=== PATIENT | male | born 1970 ===

== ENCOUNTER 2024-12-18 09:30 | Emergency (ER) | payer OTHER, SELFPAY ==
[2024-12-18 09:34] VITALS: BP 118/77; PULSE 86; RESP 18; TEMP 36.9; O2SAT 95; BMI 27.9
--- NOTE | 2024-12-18 09:47 | CRLHL7_ITS ---
For Patients: As a result of the Cures Act, medical imaging exams and procedure reports are released immediately into your electronic medical record. You may view this report before your referring provider. If you have questions, please contact your health care provider. INDICATION: Syncope COMPARISON: None TECHNIQUE: Single-view study obtained portably FINDINGS: TUBES AND LINES: None. HEART AND MEDIASTINUM: The heart size is normal. The mediastinal contour appears normal for patient age. LUNGS AND PLEURAL SPACES: Calcified granulomas noted. Lungs otherwise unremarkable.The pleural spaces are unremarkable. OSSEOUS STRUCTURES: Age-appropriate appearance. No acute focal finding.Mild elevation left hemidiaphragm IMPRESSION: No evidence of active pulmonary disease. Findings of remote granulomatous infection. Mild elevation of left hemidiaphragm. Dictated by Kobe Warner MD @ 12/18/2024 10:31:06 AM (Electronically Signed)
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
[2024-12-18 10:06] LABS: Basophils Absolute Auto 0.03 K/uL (0.00-0.30); Basophils Percent Auto 0.4 % (0.0-3.0); Eosinophils Absolute Auto 0.51 K/uL (0.00-0.50); Eosinophils Percent Auto 6.3 % (0.0-7.0); Hemoglobin* 15.7 gm/dL (13.5-17.5); Immature Granulocytes Abs Auto 0.01 K/uL (0.00-0.30); Immature Granulocytes Pct Auto 0.1 %; Lymphocytes Absolute Auto 2.82 K/uL (0.90-2.90); Lymphocytes Percent Auto 34.7 % (20-44); Mean Corpuscular HGB Conc 33 gm/dL (32-36); Mean Corpuscular Hemoglobin 30 pg (26-34); Mean Corpuscular Volume 92 fL (80-100); Monocytes Percent Auto 7.6 % (0.0-11.0); Neutrophils Absolute Auto 4.14 K/uL (1.7-7.0); Neutrophils Percent Auto 50.9 % (42.0-72.0); Platelet Count* 292 K/uL (140-440); RDW Coefficient of Variation % 12.6 % (11.5-15.5); Red Blood Count 5.21 m/uL (4.30-5.90); White Blood Count* 8.13 K/uL (4.50-11.00)
[2024-12-18 10:14] LABS: Slide Review Reflex No
[2024-12-18 10:20] LABS: Chloride* 104 mmol/L (96-114); Potassium* 4.1 mmol/L (3.6-5.1); Sodium* 142 mmol/L (135-149)
[2024-12-18 10:23] LABS: Anion Gap 9 mEq/L (7-15); Blood Urea Nitrogen* 19 mg/dL (7-30); Calcium* 9.6 mg/dL (8.4-10.6); Carbon Dioxide* 29 mmol/L (20-32); Creatinine* 1.2 mg/dL (0.5-1.5); Est. Creatinine Clearance* 82.77; Estimated Glomerular Filt Rate 72 ml/min; Glucose* 90 mg/dL (60-115)
[2024-12-18 10:36] LABS: D Dimer Quantitative* 0.23 ug/ml (0.00-0.50); Troponin I* < 0.01 ng/mL (0.01-0.04)
--- OUTSIDE RECORDS SUMMARY | 2024-12-18 10:41 | XMS_ITS | Clinical Summary ---
Author Organization [facility] Address [address] [place] [address] Care Team Providers Care Pre Owned Sales Manager Name Role Phone Uli Cooper MD Primary Care Provider [phone] Allergies Active Allergy Reactions Criticality Noted Date Comments Cats (Fur, Dander, Saliva) Shortness Of Breath,Itching 09/12/2023 Medications mometasone-formot bartolome (Dulera) 100-5 mcg/actuation inhalerIndication s:Mild persistent asthma without complication (HC) Inhale 2 Puffs by mouth two times daily. 2 Each 3 4 Active predniSONE (DELTASONE) 20 mg tabletIndications :Asthma, unspecified asthma severity, unspecified whether complicated, unspecified whether persistent (HC) Take 2 tablets (40mg) daily for 5 days, then 1 tablet (20mg) daily for 5 days 15 Tablet 4 Active Active Problems Problem Noted Date Diagnosed Date Atypical nevi 12/03/2023 Overview (02/13/2024): 11/28/2023, RIGHT ANTERIOR SHOULDER, Lentiginous compound nevus with severe atypia: s/p excision 02/03/24 Dr. Morales Family history of heart disease 04/11/2023 Hyperlipidemia 04/11/2023 Personal history of other infectious and parasit ic diseases 09/12/2021 Mild persistent asthma without complication 08/30 Overview (01/06/2024): Borderline methacholine 10/10/2023 Assessment & Plan (01/06/2024 12:43 PM CDT): Dulera as SMART therapy Welcome to return annually for refills, otherwise could follow-up with PCP Immunizations Immunization Administration Dates Next Due Hepatitis B (Adult) 03/19/2007 Pneumococcal Conj 20-valent (Prevnar 20) 024 Td (Age >=7 Years) 03/01/2009 Td, Preservative Free (age >= 7 Years) 9,09/30/2003 Tdap 06/02/2021,09/19/2006 Zoster (Shingrix-RZV, recombinant) 01/09/2024, Social History Tobacco Use Types Packs/Day Years Used Date Smoking Tobacco: Never Smokeless Tobacco: Never Tobacco Cessation:Counseling Given: Yes Alcohol Use Standard Drinks/Week Comments Yes 0 (1 standard drink = 0.6 oz pur e alcohol) 4 drinks PHQ-2 Answer Date Recorded PHQ-2 TOTAL SCORE 0 10/14/2023 Social Connections Answer Date Recorded Frequency of Communication with Friends and Fami ly 0 07/09/2023 Financial Resource Strain Answer Date R ecorded Difficulty of Paying Living Expenses 3 07/09/2023 Difficulty of Paying Living Expenses Not on file 07/09/2023 Food Insecurity Answer Date Recorded Worried About Running Out of Food in the Last Ye ar 1 07/09/2023 Transportation Needs Answer Date Record ed Lack of Transportation (Medical) 1 07/09/2023 Housing Stability Answer Date Recorded Unable to Pay for Housing in the Last Year 1 07/09/2023 Sex and Gender Information Value Date Recorded Sex Assigned at Not on file Legal Sex Male 8:19 AM TRANSMISSION TESTER Gender Identity Not on file Sexual Orientation Not on file Obstetrics History Last Filed Vital Signs Vital Sign Reading Time Taken Comments Blood Pressure 110/80 03/12/2024 9:03 AM CDT Pulse 101 03/12/2024 9:03 AM CDT Temperature 36.7 C (98.1 F) 11/29/2023 9:50 AM TRANSMISSION TESTER Respiratory Rate 18 11/29/2023 9:50 AM TRANSMISSION TESTER Oxygen Saturation 93% 03/12/2024 9:03 AM CDT Inhaled Oxygen Concentration - - Weight 98.4 kg (217 lb) 01/06/2024 11:47 AM CDT Height 185.4 cm (6' 1) 03/12/2024 9:03 AM CDT Body Mass Index 28.63 01/06/2024 11:47 AM CDT Plan of Treatment Health Maintenance Due Date Last Done Comments COVID-19 vaccine series ( season) 2024 02/13/2021, 01/23/2021 Influenza Vaccine (#1) 2024 Depression screening for age 12+ 10/14/2024 10/14/2023 BMI (ht and wt on same day) for age 18+ 01/05/2025 01/06/2024, 10/14/2023, 09/17/2023, Additional history exists Lipids for age 45-75 10/14/2028 10/14/2023 Tetanus booster 06/02/2031 06/02/2021, 06/10/2008, 03/01/2009, Additional history exists Colonoscopy through age 75 12/22/2033 12/23/2023 HIV for age 15-65 Addressed 05/04/2008 (Ve rified in Care Everywhere or Patient Record) Overridden with the intention of not completing the topic Hepatitis C screening for age 18-79 Addressed 05/04/2008 (Verified in Care Everywhere or Patient Record) Overridden with the intention of not completing the topic Tdap Completed 06/02/2021, 09/19/2006 Pneumococcal series for age 50+ Completed 10/14/2023 Zoster (shingles) series for age 50+ Completed 01/09/2024, 10/14/2023 Medical Devices Implanted Type Area Coffee Weigher Device Identifier Shelf Expiration Date Model / Serial / Lot Prestige Lp Cervicaldisc Implanted:Qty: 1 on 07/09/2023 by Magnus Holguin MD at [facility] N/A: Cervical Vertebrae Med[employer]onic 05/18/2030 [id number] / / [id number] Procedures Procedure Name Priority Date/Time Associated Diagnosis Comments SCAN-COLONOSCOPY 12/23/2023 10:3 0 AM CDT LIPID PANEL W REFLEX MEASURED LDL Routine 10/14/2023 12:36 PM TRANSMISSION TESTER Routine medical exam Screening for lipid disorders from Last 3 Months or Most Recently Relevant to Health Maintenance Results * SCAN-COLONOSCOPY (12/23/2023 10:30 AM CDT) Narrative Procedure Note Sammy Romo MD - 12/23/2023 9:34 AM CDT [facility] [address], [address], [place] [address] Patient Name: Nikhil Alcazar Gender: Male Exam Date: 12/23/2023 Visit Number: [id number] Age: 53 Years Date of : 1970 Attending MD: Sammy Romo MD Medical Record#: [id number] Procedure: Colonoscopy Indications: Colorectal cancer screening Referring MD: Referral Self Primary MD: Uli Cooper MD Medications: Admitting Medications: 0.9% Normal Saline at [facility] Intra Procedure Medications: Patient received monitored anesthesia care. Complications: No immediate complications Procedure: An examination of the heart and lungs was performed and found to be withinacceptable limits. . The patient was therefore deemed a reasonablecandidate for endoscopy and sedation. The risks and benefits of the procedure were explained to the patient.After obtaining informed consent, the patient received monitoredanesthesia care and I passed the scope without difficulty via the rectum to the cecum. The appendiceal orificeand ic valve were identified. The scope was retroflexed during theexamination The quality of the prep was good (Miralax/Gatorade/2 tabletsBisacodyl/Magnesium Citrate). This was a complete examination throughout the entire colon. Findings: Polyp location: descending colon. Quantity: 2. Size: 3-4 mm. Polypshape: sessile. Maneuver: polypectomy was performed with a cold snare. Removal: complete. Retrieval: complete. Bleeding: none. Diverticulosis. Location: - sigmoid. Description: mild. Size:small. Quantity: few. Impression: Colorectal polyps Diverticulosis of colon, acquired Preliminary Plan: The patient and their physician will receive a copy of the pathologyreport as well as pathology-based recommendations for future screening orsurveillance. Pathology Results: A: COLON, DESCENDING, POLYPS: 1. Inflammatory polyp (1) and normal colonic mucosa with alymphoid aggregate (clinically, 2 polyps) 2. Negative for dysplasia MICROSCOPIC A: Performed. Deeper tissue levels were examined. SPECIAL STAINING/DEEPER A: Deeper Electronically signed by: Gretchen Euceda DO Interpreted at [facility], [address] [place] [address] Orders Instruction(s)/Education: Instruction/Education Timeframe Assessment Colon Cancer Prevention K63.5 Colon Polyps K63.5 Diverticulosis/Diverticulitis K63.5 Final Plan: Repeat colonoscopy in 10 years for screening. If you have signs orsymptoms of lower GI illness or a new diagnosis of colon cancer in animmediate family member, you should contact [facility] or your primary providerto discuss whether your next exam should be repeated sooner. We will attempt to contact you at appropriate intervals via U.S. mail. Wemay not be able to find you or contact you at that time, therefore youshould know that the responsibility for following our recommendation restswith you. If you don't hear from us at the time your procedure is due,please contact our office to schedule an appointment. If your contactinformation should change, please contact our office so that we can updateyour record. _Electronically signed by: Sammy Romo MD 12/23/2023 cc: Uli Cooper MD us Sammy Romo MD OTHER Final Result * (ABNORMAL) LIPID PANEL W REFLEX MEASURED LDL [[id number]] (10/14/2023 12:36 PM TRANSMISSION TESTER) CHOLESTEROL,TOTAL 248(H) 100 - 199 mg/dL 10/14/2023 7:18 PM TRANSMISSION TESTER [facility] Comment: Cholesterol, Total Reference Ranges Desirable <200 mg/dL Borderline 200-239 mg/dL High >=240 mg/dL TRIGLYCERIDES 302(H) <150 mg/dL 10/14/2023 7:18 PM TRANSMISSION TESTER [facility] HDL CHOLESTEROL 51 >40 mg/dL 7:18 PM TRANSMISSION TESTER [facility] NON-HDL CHOLESTEROL 197(H) <145 mg/dl 10/14/2023 7:18 PM TRANSMISSION TESTER [facility] CHOL/HDL RATIO 4.86(H) <4.50 10/14/2023 7:18 PM TRANSMISSION TESTER [facility] LDL CHOLESTEROL 137(H) <=130 mg/dL 10/14/2023 7:18 PM TRANSMISSION TESTER [facility] VLDL CHOLESTEROL 60(H) <=30 mg/dL 10/14/2023 7:18 PM TRANSMISSION TESTER [facility] PROVIDER ORDERED STATUS RANDOM 10/14/2023 7:18 PM TRANSMISSION TESTER [facility] Blood BLOOD SPECIMEN / Unknown Venipuncture / Unknown 10/14/2023 12:36 PM TRANSMISSION TESTER 10/14/2023 12:36 PM TRANSMISSION TESTER Uli Cooper MD CHEMISTRY Final Result Performing Organization Address City/State/[facility] Co de Phone Number [facility] [address] [place] [phone], from Last 3 Months or Most Recently Relevant to Health Maintenance [place] [address] Advance Directives * Full Code (Latest Code Status on File) Date Activated Date Inactivated Comments 07/09/2023 1:42 PM 07/10/2023 4:36 PM Question Answer Comments Code Status Discussion: Reviewed Preferences Care Teams Pre Owned Sales Manager Relationship Specialty Start Date End Date Uli Cooper MD [address] [facility] [address] [facility] [address] [place] [address] PCP - General Family Practice 10/14/23
--- OUTSIDE RECORDS SUMMARY | 2024-12-18 10:41 | XMS_ITS | Encounter Summary ---
Author Organization [facility] Address [address] [place] [address] Care Team Providers Care Salesforce Developer Name Role Phone Therese Durán P.A.-C., P.A., M.S. Primary Ca re Provider Encounter Details Date Type Department Care Team (Late st Contact Info) Description 10/03/2024 CPAP Download Remote Patient Monitoring [facility] [address] [place] [address] [facility], Provider, Social History Tobacco Use Types Packs/Day Years Used Date Smoking Tobacco: Never Smokeless Tobacco: Never Alcohol Use Standard Drinks/Week Comments Yes 0 (1 standard drink = 0.6 oz pur e alcohol) [facility] Utilities Answer Date Recorded In the past 12 months has th e electric, gas, oil, or water [employer] threatened to shut off services in your home? Patient declined 05/26/2024 Exercise Vital Sign Answer Date Recorde d On average, how many days pe r week do you engage in moderate to strenuous exercise (like a brisk walk)? Patient declined On average, how many minutes do you engage in exercise at this level? Patient declined 05/26/2024 Hunger Vital Sign Answer Date Recorded Within the past 12 months, y ou worried that your food would run out before you got the money to buy more. Patient declined Within the past 12 months, t he food you bought just didn't last and you didn't have money to get more. Patient declined PRAPARE - Transportation Answer Date Re corded In the past 12 months, has l ack of transportation kept you from medical appointments or from getting medications? Patient declined 05/26/2024 In the past 12 months, has l ack of transportation kept you from meetings, work, or from getting things needed for daily living? Patient declined 05/26/2024 Dental Answer Date Recorded Dental: Regular Dentist Unknown 04/01/20 24 Housing Stability Answer Date Recorded What is your living situation today? 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 [address] [place] [address] 03/05/2025 10:00 AM CDT Ancillary Procedure Department of Allergy in [place], [place] [address] [address] Al Cespedes M.D. [address] [place] [address] Discharge Disposition: Home or Self Care documented as of this encounter Visit Diagnoses Not on filedocumented in this encounter Care Teams Salesforce Developer Relationship Specialty Start Date End Date Therese Durán P.A.-C., P.A., M.S. [address] [place] [address] PCP - General Family Medicine 04/08/24 documented as of this encounter
--- OUTSIDE RECORDS SUMMARY | 2024-12-18 10:41 | XMS_ITS | Encounter Summary ---
Author Organization [facility] Address [address] [place] [address] Care Team Providers Care Restorative Aide Name Role Phone Therese Durán P.A.-C., P.A., M.S. Primary Ca re Provider Reason for Visit * Reason Comments Immunotherapy * Outpatient (Routine) - Authorized Specialty Diagnoses / Procedures Referred By Contac t Referred To Contact Diagnoses Rhinitis Procedures Immunotherapy: Sub-cutaneous (SQ) injection Al Cespedes M.D. [address] [place] [address] Phone: tel: fax: [facility] Referral ID Status Reason Start Date Expiration Date V isits Requested Visits Authorized [id number] Authorized 2024 2025 100 100 Encounter Details Date Type Department Care Team (Latest Contact Info) Description 10/02/2024 8:30 AM RAIL CAR WELDER Ancillary Procedure Department of Allergy in [place], [place] [address] [place] [phone] Al Cespedes M.D. [address] [place] [phone] Heather Barfield, RDawitNDawit [address] [place] [phone] Rhinitis Discharge Disposition: Home or Self Care Social History Tobacco Use Types Packs/Day Years Used Date Smoking Tobacco: Never Smokeless Tobacco: Never Alcohol Use Standard Drinks/Week Comments Yes 0 (1 standard drink = 0.6 oz pur e alcohol) [facility] Utilities Answer Date Recorded In the past 12 months has th e electric, gas, oil, or water company threatened to shut off services in your [...] Date Recorded Dental: Regular Dentist Unknown 04/01/20 Housing Stability Answer Date Recorded What is your living situation today? Patient dec lined 05/26/2024 Sex and Gender Information Value Date Recorded Sex Assigned at Not on file Legal Sex Male 8:19 AM RAIL CAR WELDER Gender Identity Not on file Sexual Orientation Not on file documented as of this encounter Patient Instructions * Patient Instructions* Heather Barfield, R.N. - 10/02/2024 8:30 AM RAIL CAR WELDER Allergy shots Patient Instructions for Follow up 10/02/24 Your next dose is due in 2 - 8 days If you fail to be seen within the above time frame adjustment will be needed for your dosing, whichcan result in additional appointments and associated cost. You are required to stay in the department for 30 minutes after allergy injections. During your visit, please notify the nurse immediately for any signs of anaphylaxis including: Itching or hives (away from injection site) Itching, scratching, tightness in throat Swelling of any part of body (away from injection site) Chest tightness Itchy/watery eyes Wheezing, coughing or shortness of breath Stuffy or runny nose Nausea, vomiting, stomach ache, diarrhea Metallic taste in mouth Lightheadedness General feeling like something is wrong or not feeling well If you have any questions about your care or follow up instructions, please discuss with your nursebefore you leave your appointment. After your appointment, for severe symptoms call 911 or seek treatment at the closest emergency room. For non-emergent symptoms contact your provider. CAR WELDER documented in this encounter Nursing Notes * Heather Barfield R.N. - 10/02/2024 8:22 AM CST Sae presented to the Allergy Department for immunotherapy injection(s) today. You are in the Building Phase. You are due back for your allergy shot between 10/04/24 and 10/10/24. If you are beyond thiswindow, you will fall into the late protocol and will need adjustments to your dosing and appointments.. CAR WELDER documented in this encounter Plan of Treatment Upcoming Encounters Date Type Department Care Team (Latest Contact Info) Description 01/08/2025 10:00 AM CDT Ancillary Procedure Department of Allergy in [place], [place] [address] [address] Al Cespedes M.D. [address] [place] [address] 03/05/2025 10:00 AM CDT Ancillary Procedure Department of Allergy in [place], [place] [address] [phone] Al Cespedes M.D. [address] [place] [address] Discharge Disposition: Home or Self Care documented as of this encounter Visit Diagnoses Diagnosis Rhinitis documented in this encounter Care Teams Restorative Aide Relationship Specialty Start Date End Date SigTherese hammonds P.A.-C., P.A., M.S. [address] [place], [place] [phone] PCP - General Family Medicine 04/08/24 documented as of this encounter
--- OUTSIDE RECORDS SUMMARY | 2024-12-18 10:41 | XMS_ITS | Encounter Summary ---
Author Organization [facility] Address [address] [place] [address] Care Team Providers Care Goodyear Welter Name Role Phone Therese Durán P.A.-C., P.A., M.S. Primary Ca re Provider Encounter Details Date Type Department Care Team (Late st Contact Info) Description 11/19/2024 Clinical Communication [facility] [address] [place] [phone] Melissa Redding, RDawitNDawit [address] [place] [phone] Social History Tobacco Use Types Packs/Day Years Used Date Smoking Tobacco: Never Smokeless Tobacco: Never Alcohol Use Standard Drinks/Week Comments Yes 0 (1 standard drink = 0.6 oz pur e alcohol) [facility] Utilities Answer Date Recorded In the past 12 months has [facility] [employer], gas, oil, or water [employer] threatened to shut off services in your [...] on file Legal Sex Male 8:19 AM EVP OPERATIONS Gender Identity Not on file Sexual Orientation Not on file documented as of this encounter Miscellaneous Notes * Telephone Encounter - Melissa Redding R.N. - 11/19/2024 12:50 PM EVP OPERATIONS Procedure: EGD Prep: N/A Was prep sent to the pharmacy? Has he received the prep? no no History of Chronic Constipation or Incomplete bowel prep? no BMI or last known BMI BMI <45 can schedule CF, LC, and AL BMI<50 for AU and RW, if BMI 50-55 need anesthesia approval BMI >55 refer to [facility] BMI: Estimated body mass index is 28.06 kg/m?? as calculated from the following: Height as of 06/16/24: 183.5 cm. Weight as of 06/16/24: 94.5 kg. Diabetic: No Educated per [facility] Patient Education: Diabetes Medication Instructions: Tests, Procedures, and Surgeries that require Fasting. Weight loss/GLP-1 medications: Phentermine (Adipex) - Semaglutide (Rybelsus) - Liraglutide (Victoza, Saxenda) - Lixisenatide (Adlyxin) - Exenatide (Byetta) - Exenatide ER (Bydureon) - Dulaglutide (Trulicity) - Tirzepatide (Mounjaro) - Semaglutide (Ozempic, Wegovy) - No Phentermine needs to be held for 7 days prior. Daily oral meds need to be held the evening prior, and the day of the procedure. Daily injections need to be held the day of the procedure. Weekly injections need to be held for 7 days prior. Anticoagulation: - Warfarin (Coumadin) - Apixaban (Eliquis) - Dabigatran etexilate (Pradaxa) - Rivaroxaban (Xarelto) - Enoxaparin (Lovenox) - Fondaparinux (Arixtra) - Clopidogrel (Plavix) - Ticagrelor (Brilinta) - Prasugrel (Effient) No As of 03/03/24: Aspirin 325mg does not need to be held prior to an endoscopy procedure. Reviewed booklet with patient including prep, procedural expectations, NPO instructions, medicationinstructions, arrival time and that they need a driver's license examiner. yes Arrival Time: Patient informed of the auto text or phone call with arrival time the evening prior: May still call to obtain arrival time: yes Education complete. Patient verbalizes understanding of education provided and number to call if questions arise: [facility] Endoscopy Call Center [phone] yes Additional Comments: If patient is concerned he is not emptying pre-procedural, please call the listed number, based on location, the morning of. [phone] [facility] [phone] [facility] [phone] [facility] [phone] [facility] [phone] [facility] OPERATIONS documented in this encounter Plan of Treatment Upcoming Encounters Date Type Department Care Team (Latest Contact Info) Description 01/08/2025 10:00 AM CDT Ancillary Procedure Department of Allergy in [place], [place] [address] [phone] Al Cespedes M.D. [address] [place] [address] 03/05/2025 10:00 AM CDT Ancillary Procedure Department of Allergy in [place], [place] [address] [phone] Al Cespedes M.D. [address] [place] [address] Discharge Disposition: Home or Self Care documented as of this encounter Visit Diagnoses Not on filedocumented in this encounter Care Teams Goodyear Welter Relationship Specialty Start Date End Date Therese Durán P.A.-C., P.A., M.S. [address] [place] [phone] PCP - General Family Medicine 04/08/24 documented as of this encounter
--- OUTSIDE RECORDS SUMMARY | 2024-12-18 10:41 | XMS_ITS | Encounter Summary ---
Author Organization [facility] Address [address] [place] [address] Care Team Providers Care Pumper Hand Name Role Phone Therese Durán P.A.-C., P.A., M.S. Primary Ca re Provider Reason for Visit * Reason Onset Date Comments Cough 12/15/2024 Encounter Details Date Type Department Care Team (Late st Contact Info) Description 12/15/2024 Nurse Triage Department of Family Medicine, [facility], in [place], [place] [address] [place] [address] Esmer Garcia, RDawitN. 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 - 12/15/2024 12:56 PM CDT Chief Complaint / Reason for Call Patient is a 54 y.o. male calling regarding Cough. Assessment Concern: Patient is calling in regarding chronic cough since August. Patient has seen allergy andpulmonologist. Patient has noticed improvement with his inhaler changes. Patient had a coughing fitwhere he thought maybe had a seizure. Patient was aware at the end when he was shaking and came outof it. Patient was unaware for around 5 seconds. Patient recalls some times that he felt lightheaded when he was having his coughing fits/spells. Patient feels well now, no ongoing symptoms. Patient feels fatigued today, but only current symptom. Present for: 0730 Home cares tried: monitor Calling to request: advice The recommended disposition is See a health care provider within 24 hours (overriding Go to ED Now (or PCP Triage)). Patient was warm transferred to Mercedes, Patient Appointment Director Of Market Analysis at the clinic for further assistance. [facility] provider, Dr. Chica Meza, contacted for provider advice. Provider recommended: if no other symptoms emerge be seen within 24 hours, if new symptoms develop call triage or be seen in nearest ED. . Patient notified of provider recommendations and agrees to the plan of care. Care Advice Patient/Caregiver understands and will follow care advice?: Yes, able to teach back [id number] Nurse Esmer Soriano Dec 15, 2024 01:10 PM Care Advice GO TO ED/UCC NOW (OR PCP TRIAGE): * IF NO PCP (PRIMARY CARE PROVIDER) SECOND-LEVEL TRIAGE: You need to be seen within the next hour. Go to the ED/UCC at Hospital. Leave as soon as you can. * IF PCP SECOND-LEVEL TRIAGE REQUIRED: You may need to be seen. Your doctor (or DRY DRUG WORKER/PA) will want totalk with you to decide what's best. I'll page the provider on-call now. If you haven't heard from the provider (or me) within 30 minutes, go directly to the ED/UCC at Hospital. SOURCES OF CARE: * TRIAGER CAUTION: In selecting the most appropriate care site, you must consider both the severityof the patient's symptoms AND what resources are available at that care site. * ED: Patients who may need surgery, need hospitalization, sound seriously ill or may be unstable need to be sent to an ED. Likewise, so do most patients with complex medical problems and serious symptoms. * UCC IS OPEN: Some Urgent Care Centers (UCCs) can manage patients who are stable and have less serious symptoms (e.g., minor illnesses and injuries). The triager must know the UCC capabilities before sending a patient there. If unsure, call ahead. * OFFICE IS OPEN: If patient sounds stable and not seriously ill, consult PCP (or follow your office policy) to see if patient can be seen NOW in office. ANOTHER ADULT SHOULD DRIVE: * It is better and safer if another adult drives instead of you. CALL BACK IF: * You become worse Reason for Disposition [1] Age > 50 years AND [2] now alert and feels fine Protocols used: [id number] documented in this encounter Plan of Treatment Upcoming Encounters Date Type Department Care Team (Latest Contact Info) Description 01/08/2025 10:00 AM CDT Ancillary Procedure Department of Allergy in [place], [place] [address] [place] [address] Al Cespedes M.D. [address] [place] [address] 03/05/2025 10:00 AM CDT Ancillary Procedure Department of Allergy in [place], [place] [address] [phone] Al Cespedes M.D. [address] [place] [address] Discharge Disposition: Home or Self Care documented as of this encounter Visit Diagnoses Not on filedocumented in this encounter Care Teams Pumper Hand Relationship Specialty Start Date End Date Therese Durán P.A.-C., P.A., M.S. [address] [place] [phone] PCP - General Family Medicine 04/08/24 documented as of this encounter
--- OUTSIDE RECORDS SUMMARY | 2024-12-18 10:41 | XMS_ITS | Clinical Summary ---
Author Organization [facility] Address [address] [place] [address] Care Team Providers Care Vp Name Role Phone Therese Durán P.A.-C., P.A., M.S. Primary Ca re Provider Source Comments Patient records contain information from all sites at [facility]. For routine questions regarding patient records, call [phone] during business hours, M-F 8:00 AM - 5:00 PM Central Time. Record requests for emergency care only can be directed to [phone] at any time.[facility] Allergies Active Allergy Reactions Criticality Noted Date Comments Cat Dander Cough,Shortness of breath,Wheezing 10/19/2005 Dog Dander Other (see comments) 11/02/2024 Cough, Shortness of breath, Wheezing Horse Dander Other (see comments) 11/02/2024 Cough, Shortness of breath, Wheezing House Dust Mite Other (see comments) 11/02/2024 Cough, Shortness of breath, Wheezing [place] Other (see comments) 11/02/2024 Cough, Shortness of breath, Wheezing Medications EPINEPHrine (EpiPen 2-Pedrito) 0.3 mg/0.3 mL injection syringe Inject into thigh and hold for 3 seconds. 1 each 2 4 Active DME CPAPIndications :Apnea Sleep Obstructive DME Order 1 each 4 Active albuterol 2.5 mg /3 mL nebulizer solution Inhale 3 mL (2.5 mg total) by nebulization every 6 (six) hours as needed for wheezing or shortness of breath. 225 mL 3 4 Active fluticasone-ume clidin-vilanter (Trelegy Ellipta) 200-62.5-25 mcg inhaler Inhale 1 puff daily. 1 each 5 5 Active albuterol (Ventolin HFA) 90 mcg/actuation inhaler Inhale 2 puffs every 4 (four) hours as needed for wheezing or shortness of breath. 18 g 5 5 Active loperamide (Imodium A-D) 2 mg capsuleIndicati ons:Diarrhea Initial: 4 mg, followed by 2 mg after each loose stool; maximum: 16 mg/day. Use for 3 days maximum 60 capsule 5 Active Hospital, Clinic, or Other Facility Administered Medication Ordered Dose Route Frequency Start Date End Date Status hydrocortisone 1 % cream 1 ApplicationIndications:Rhini tis Allergic,Desensitization To Allergies 1 Application top As needed 08/03/2024 Active Active Problems Patient Care Coordination No te Formatting of this note migh t be different from the original. PATIENT PREFERS NO VITALS DURING OFFICE VISITS. Please ask patient to confirm preferences and document in the chart Problem Noted Date Diagnosed Date Persons Encountering Health Services In Other Specified Circumstances 11/02/2024 Overview (11/02/2024): Patient prefers no vitals during office visits. Advised on required nursing protocol for vital check during medical visits. To improve patient experience and adhere to the [facility] protocols for nursing during room, would recommend nursing to ask patient to confirm preferences during and to proceed per response with required documentation in the chart. Asthma Mild Intermittent With Acute Exacerbation 10/06/2024 Gastroesophageal Reflux Disease Without Esophagi tis 10/06/2024 Chronic Cough 10/06/2024 Eosinophilic Asthma 10/05/2024 Rhinitis Allergic Dust Mite 10/05/2024 Rhinitis Allergic Dog 10/05/2024 Rhinitis Allergic Cat 10/05/2024 Rhinitis Allergic Due To Outdoor Pollen 10/05/19 25 Conjunctivitis Chronic Allergic 10/05/2024 Desensitization To Allergies 10/05/2024 Hyperlipidemia 05/26/2024 Encounters Date Type Department Care Team Description 12/16/2024 8:30 AM CDT Office Visit Department of Family Medicine, [facility], in [place], [place] [address] [place], [place] [address] Neil Roberts II, M.D. Eosinophilic Asthma (HCC) (Primary Dx); Chronic Cough; Desensitization To Allergies Discharge Disposition: Home or Self Care 12/15/2024 Nurse Triage Department of Family Medicine, [facility], in [place], [place] [address] [place] [address] Esmer Garcia R.N. Cough 12/11/2024 10:00 AM CDT Ancillary Procedure Department of Allergy in [place], [place] [address] [place] [phone] Al Cespedes M.D. Rhinitis Discharge Disposition: Home or Self Care 12/04/2024 CPAP Download Remote Patient Monitoring [facility] [address] [place] [address] [facility], MD Bea 11/20/2024 11:27 AM GERIATRIC NURSE ASSISTANT Anesthesia Event Department of Gastroenterology in [place], [place] [address] [place] [id number] Leidy Castro M.D., M.S. Fabian Perez, D.O. 11/20/2024 11:16 AM GERIATRIC NURSE ASSISTANT - 11/20/2024 11:59 PM GERIATRIC NURSE ASSISTANT Hospital Encounter Department of Gastroenterology in [place], [place] [address] [place] [phone] Farzaneh Jordan M.D., Ph.D. Leelee Gallegos M.D. Stump, Corey P, PALMER, STAFFING RN Celiac Disease Discharge Disposition: Home or Self Care 11/20/2024 11:00 AM GERIATRIC NURSE ASSISTANT Ancillary Procedure Department of Allergy in [place], [place] [address] [place] [phone] Al Cespedes M.D. Adams, Connie L, L.P.N. Rhinitis Discharge Disposition: Home or Self Care 11/19/2024 Clinical Communication [facility] PRE/POST [address] [facility] [place] [phone] Melissa Redding, R.N. 11/17/2024 Clinical Communication Department of Gastroenterology in [place], [place] [address] [place] [phone] Leelee Gallegos M.D. EGD 11/16/2024 2:10 PM GERIATRIC NURSE ASSISTANT Comprehensive Visit Division of Gastroenterology in [place], [place] [address] [place] [address] Jeff Mariano M.D., M.S. Farzaneh Jordan M.D., Ph.D. Diarrhea; Celiac Disease 11/05/2024 11:00 AM GERIATRIC NURSE ASSISTANT Ancillary Procedure Department of Allergy in [place], [place] [address] [place] [address] Al Cespedes M.D. Rhinitis Discharge Disposition: Home or Self Care 11/05/2024 Results Follow-Up Department of Family Medicine, [facility], in [place], [place] [address] [place] [address] Jeff Mariano M.D., M.S. Celiac Disease Serology [place], Inflammatory Bowel Disease Serology Panel, tTG (Tissue Transglutaminase), Antibody, IgA, Additional followed-up results: 2 11/05/2024 Clinical Communication Department of Allergy in [place], [place] [address] [place] [address] Jayy Pereyra M.D. 11/03/2024 CPAP Download Remote Patient Monitoring [facility] [address] [place] [address] [facility] 11/02/2024 8:45 AM GERIATRIC NURSE ASSISTANT - 11/02/2024 11:59 PM GERIATRIC NURSE ASSISTANT Hospital Encounter Department of Laboratory Medicine in [place], [place] [address] [place] [address] Jeff Mariano M.D., M.S. Discharge Disposition: Home or Self Care 10/30/2024 11:19 AM GERIATRIC NURSE ASSISTANT - 10/30/2024 11:59 PM GERIATRIC NURSE ASSISTANT Hospital Encounter Department of Laboratory Medicine in [place], [place] [address] [place] [address] Jeff Mariano M.D., M.S. Diarrhea Discharge Disposition: Home or Self Care 10/30/2024 11:19 AM GERIATRIC NURSE ASSISTANT - 10/30/2024 11:59 PM GERIATRIC NURSE ASSISTANT Hospital Encounter Department of Laboratory Medicine in [place], [place] [address] [place] [address] Jeff Mariano M.D., M.S. Diarrhea Discharge Disposition: Home or Self Care 10/30/2024 11:18 AM GERIATRIC NURSE ASSISTANT Hospital Encounter Department of Laboratory Medicine in [place], [place] [address] [place] [address] Jeff Mariano M.D., M.S. Diarrhea Discharge Disposition: Home or Self Care 10/30/2024 11:00 AM GERIATRIC NURSE ASSISTANT Ancillary Procedure Department of Allergy in [place], [place] [address] [place] [address] Al Cespedes M.D. Rhinitis Discharge Disposition: Home or Self Care 10/30/2024 Results Follow-Up Department of Family Medicine, [facility], in [place], [place] [address] [place] [address] Jeff Mariano M.D., M.S. GI Pathogen Panel, PCR, Feces 10/29/2024 3:31 PM GERIATRIC NURSE ASSISTANT - 10/29/2024 11:59 PM GERIATRIC NURSE ASSISTANT Hospital Encounter Department of Laboratory Medicine in [place], [place] [address] [place] [address] Jeff Mariano M.D., M.S. Diarrhea Discharge Disposition: Home or Self Care 10/29/2024 2:30 PM GERIATRIC NURSE ASSISTANT Office Visit Department of Family Medicine, [facility], in [place], [place] [address] [place] [address] Jeff Mariano M.D., M.S. Diarrhea (Primary Dx); Persons Encountering Health Services In Other Specified Circumstances Discharge Disposition: Home or Self Care 10/27/2024 Nurse Triage Department of Family Medicine, [facility], in [place], [place] [address] [place] [address] Zahida John R.N. Diarrhea 10/23/2024 10:00 AM GERIATRIC NURSE ASSISTANT Ancillary Procedure Department of Allergy in [place], [place] [address] [place] [address] Al Cespedes M.D. Adams, Connie L, L.P.NDawit Rhinitis Discharge Disposition: Home or Self Care 10/16/2024 3:00 PM GERIATRIC NURSE ASSISTANT Comprehensive Visit Department of Dermatology in [place], [place] [address] [place] [address] Inez Plaza M.D. Hutchinson, Sara K, APRN C.N.P., M.S.N. Screening Examination Skin Cancer (Primary Dx); Lesion Skin; Nevus Atypical; Nodule Subcutaneous; Keratosis Seborrheic; Nevi Multiple 10/16/2024 10:00 AM GERIATRIC NURSE ASSISTANT Ancillary Procedure Department of Allergy in [place], [place] [address] [place] [address] Al Cespedes M.D. Juenger, Carrie J, RRose Marie Rhinitis Discharge Disposition: Home or Self Care 10/09/2024 10:00 AM GERIATRIC NURSE ASSISTANT Ancillary Procedure Department of Allergy in [place], [place] [address] [place] [address] Al Cespedes M.D. Adams, Connie L, L.P.NDawit Rhinitis Discharge Disposition: Home or Self Care 10/06/2024 10:00 AM GERIATRIC NURSE ASSISTANT Comprehensive Visit Department of Pulmonary Medicine in [place], [place] [address] [place] [address] Ramandeep Kaplan M.D. Chronic Cough (Primary Dx); Asthma Mild Intermittent With Acute Exacerbation (HCC); Eosinophilic Asthma (HCC); Rhinitis Allergic Cat; Gastroesophageal Reflux Disease Without Esophagitis Discharge Disposition: Home or Self Care 10/05/2024 8:30 AM GERIATRIC NURSE ASSISTANT Comprehensive Visit Department of Allergy in [place], [place] [address] [place] [address] Jayy Pereyra M.D. Asthma Moderate Persistent With Acute Exacerbation (HCC) (Primary Dx); Bronchitis Acute; Eosinophilic Asthma (HCC); Desensitization To Allergies; Rhinitis Allergic Dust Mite; Rhinitis Allergic Dog; Rhinitis Allergic Cat; Rhinitis Allergic Due To Outdoor Pollen; Conjunctivitis Chronic Allergic Discharge Disposition: Home or Self Care 10/03/2024 CPAP Download Remote Patient Monitoring [facility] [address] [place] [address] [facility] 10/02/2024 8:30 AM GERIATRIC NURSE ASSISTANT Ancillary Procedure Department of Allergy in [place], [place] [address] [place] [place] [address] Al Cespedes M.D. Juenger, Carrie J, R.N. Rhinitis Discharge Disposition: Home or Self Care 09/29/2024 9:55 AM GERIATRIC NURSE ASSISTANT - 09/29/2024 11:59 PM GERIATRIC NURSE ASSISTANT Hospital Encounter Department of Radiology in [place], [place] [address] [place] [address] Taco Terrell P.A.-CDawit Asthma (HCC) Discharge Disposition: Home or Self Care 09/29/2024 9:26 AM GERIATRIC NURSE ASSISTANT - 09/29/2024 9:54 AM GERIATRIC NURSE ASSISTANT Hospital Encounter Department of Pulmonary Medicine in [place], [place] [address] [place] [address] Taco Terrell P.A.-CDawit Asthma (HCC) Discharge Disposition: Home or Self Care 09/29/2024 9:18 AM GERIATRIC NURSE ASSISTANT - 09/29/2024 9:25 AM GERIATRIC NURSE ASSISTANT Hospital Encounter Department of Pulmonary Medicine in [place], [place] [address] [place] [address] Taco Terrell P.A.-CDawit Asthma (HCC) Discharge Disposition: Home or Self Care 09/28/2024 1:00 PM GERIATRIC NURSE ASSISTANT Ancillary Procedure Department of Allergy in [place], [place] [address] [place] [address] Al Cespedes M.D. Rhinitis Discharge Disposition: Home or Self Care 09/22/2024 11:00 AM GERIATRIC NURSE ASSISTANT Ancillary Procedure Department of Allergy in [place], [place] [address] [place] [address] Al Cespedes M.D. Rhinitis Discharge Disposition: Home or Self Care 09/22/2024 7:30 AM GERIATRIC NURSE ASSISTANT Office Visit Department of Family Medicine, [facility], in [place], [place] [address] [place] [address] Taco Terrell P.A.-C. Asthma (HCC) (Primary Dx); Asthma Exacerbation (HCC) Discharge Disposition: Home or Self Care 09/22/2024 Clinical Communication Department of [facility], [facility], in [place], [place] [address] [place], [place] [address] Taco Terrell P.A.-C. 09/22/2024 Orders Only Department of [facility], [facility], in [place], [place] [address] [place] [address] Taco Terrell P.A.-C. Asthma (HCC) (Primary Dx) 09/22/2024 Clinical Communication Department of [facility], [facility], in [place], [place] [address] [place] [place] [address] Taco Terrell P.ADawit-C. 09/21/2024 Nurse Triage Department of [facility], [place], [place] [address] [place] [address] Vanessa Walker R.N. Cough from Last 3 Months Immunizations Immunization Administration Dates Next Due HepB Adult 03/19/2007 HepB Adult (HEPLISAV-B) 05/26/2024 PCV20 10/14/2023 RZV (SHINGRIX) 01/09/2024,10/14/2023 Td Preservative Free (TENIVAC, DECAVAC) 03/01/20,09/30/2003 Tdap 06/02/2021,09/19/2006 Family History Medical History Relation Name Comments cardiac stent Brother Hyperlipidemia Father Stroke Father Relation Name Status Comments Brother Father Social History Tobacco Use Types Packs/Day Years Used Date Smoking Tobacco: Never Smokeless Tobacco: Never Tobacco Cessation:Counseling Given: Not Answered Alcohol Use Standard Drinks/Week Comments Yes 0 (1 standard drink = 0.6 oz pur e alcohol) [facility] Utilities Answer Date Recorded In the past 12 months has e [employer] gas, oil, or water [employer] threatened to shut off services in your [...] on file Legal Sex Male 8:19 AM GERIATRIC NURSE ASSISTANT Gender Identity Not on file Sexual Orientation Not on file Last Filed Vital Signs Vital Sign Reading Time Taken Comments Blood Pressure 126/87 11/20/2024 11:30 AM GERIATRIC NURSE ASSISTANT Pulse 96 10/06/2024 10:07 AM GERIATRIC NURSE ASSISTANT Temperature 36 C (96.8 F) 11/20/2024 11:30 AM GERIATRIC NURSE ASSISTANT Respiratory Rate 18 11/20/2024 11:30 AM GERIATRIC NURSE ASSISTANT Oxygen Saturation 99% 11/20/2024 11:30 AM GERIATRIC NURSE ASSISTANT Inhaled Oxygen Concentration - - Weight 94.5 kg (208 lb 5.4 oz) 06/16/2024 10:20 AM CDT Height 183.5 cm (6' 0.24) 06/16/2024 10:20 AM C DT Body Mass Index 28.06 06/16/2024 10:20 AM CDT Plan of Treatment Upcoming Encounters Date Type Department Care Team (Latest Contact Info) Description 01/08/2025 10:00 AM CDT Ancillary Procedure Department of Allergy in [place], [place] [address] [place] [address] Al Cespedes M.D. [address] [place] [address] 03/05/2025 10:00 AM CDT Ancillary Procedure Department of Allergy in [place], [place] [address] [place] [phone] Al Cespedes M.D. [address] [place] [address] Discharge Disposition: Home or Self Care Health Maintenance Due Date Last Done Comments CT Colonography 1971 Cologuard 1971 FIT 1971 HIV Screening 1971 Hepatitis C Screening 1971 COVID-19 Vaccine ( - 2023- season) 2024 08/30/2021, 02/13/2021, 01/23/2021 Influenza Vaccine (#1) 2024 Hepatitis B Vaccines (3 of 3 - 19+ 3-dose series) 07/21/2024 05/26/2024, 03/19/2007 Depression Screening (Annual PHQ-2) 09/30/2024 Lipid (Cholesterol) Screening 10/14/2024 10/14/2023 Fasting Glucose for Diabetes Screening 07/14/2026 07/14/2023, 06/25/2023 DTaP,Tdap,and Td Vaccines (4 - Td or Tdap) 06/02/2031 06/02/2021, 03/01/2009, 09/19/2006, Additional history exists Colonoscopy 12/22/2033 12/23/2023 Colorectal Cancer Screening 12/22/2033 Pneumococcal vaccine (50+ years) Completed 10/14/2023 Zoster Vaccines Completed 01/09/2024, 10/14/2023 IPV Vaccines Aged Out No longer eligi ble based on patient's age to complete this topic Procedures Procedure Name Priority Date/Time Associated Diagnosis Comments GLIADIN (DEAMIDATED) AB, IGA, S Routine 11/02/2024 8:49 AM GERIATRIC NURSE ASSISTANT ENDOMYSIAL ABS (IGA), S Routine 11/02/2024 8:49 AM GERIATRIC NURSE ASSISTANT TISSUE TRANSGLUTAMINASE (TTG) AB, IGA, S Routine 11/02/2024 8:49 AM GERIATRIC NURSE ASSISTANT INFLAMMATORY BOWEL DISEASE SEROLOGY PANEL, S Routine 11/02/2024 8:49 AM GERIATRIC NURSE ASSISTANT Diarrhea CELIAC DISEASE SEROLOGY CASCADE, S Routine 11/02/2024 8:49 AM GERIATRIC NURSE ASSISTANT Diarrhea MALABSORPTION EVALUATION PANEL, F Routine 10/31/2024 6:00 AM GERIATRIC NURSE ASSISTANT Diarrhea OVA AND PARASITE, MICROSCOPY, F Routine 10/31/2024 6:00 AM GERIATRIC NURSE ASSISTANT Diarrhea ENTERIC PATHOGENS CULTURE, STOOL Routine 10/31/2024 6:00 AM GERIATRIC NURSE ASSISTANT Diarrhea GI PATHOGEN PANEL, PCR, F Routine 10/29/2024 4:18 PM GERIATRIC NURSE ASSISTANT Diarrhea EXHALED NITRIC OXIDE Routine 09/29/2024 10:05 AM GERIATRIC NURSE ASSISTANT Asthma (HCC) DX CHEST AP OR PA AND LATERAL 2 VIEWS RAD - Routine (most inpatients and all outpatients) 09/29/2024 10:02 AM GERIATRIC NURSE ASSISTANT Asthma (HCC) PULMONARY FUNCTION TESTS Routine 09/29/2024 9:57 AM GERIATRIC NURSE ASSISTANT Asthma (HCC) from Last 3 Months Results * Celiac Disease Serology [place] (11/02/2024 8:49 AM GERIATRIC NURSE ASSISTANT) Immunoglobulin A (IgA), S 289 61 - 356 mg/dL 11/03/2024 12:28 PM GERIATRIC NURSE ASSISTANT [facility] Celiac Disease Interpretation See Comment: Celiac disease possible. Consider biopsy. 11/06/2024 10:21 PM GERIATRIC NURSE ASSISTANT [facility] Blood (Blood, Venous) 11/02/2024 8:49 AM GERIATRIC NURSE ASSISTANT 11/02/2024 6:19 PM GERIATRIC NURSE ASSISTANT Narrative [facility] - 11/06/2024 10:21 PM GERIATRIC NURSE ASSISTANT Specimen Information: Specimen ID: [id number] Specimen Type: Blood Specimen Collection Start Date: 11/02/2024 8:49 AM Specimen Received Date: 11/02/2024 6:19 PM Specimen ID: [id number] Specimen Type: Blood Specimen Collection Start Date: 11/02/2024 8:49 AM Specimen Received Date: 11/03/2024 6:16 AM Jeff Mariano M.D., M.S. LAB BLOOD ADD-ON Final Result Performing Organization Address [facility] de Phone Number [facility] [address] [place] [address] [facility] [address] [place] [address] [place] [facility] [place] [address] * (ABNORMAL) Gliadin (Deamidated) Antibody, IgA (11/02/2024 8:49 AM GERIATRIC NURSE ASSISTANT) Gliadin(Deamid ated) Ab, IgA, S 48.3(H) <20.0 (Negative) U 11/05/2024 9:13 AM GERIATRIC NURSE ASSISTANT [facility] Comment:Interpretation: Posi tive (>30.0) Blood 11/02/2024 8:49 AM GERIATRIC NURSE ASSISTANT 11/03/2024 6:31 PM GERIATRIC NURSE ASSISTANT Jeff Mariano M.D., M.S. LAB BLOOD ADD-ON Final Result Performing Organization Address [facility] de Phone Number [facility] [address] [place] [address] [place] [address] * Endomysial Antibodies (IgA) (11/02/2024 8:49 AM GERIATRIC NURSE ASSISTANT) Endomysial Ab Negative Negative 11/06/2024 3:01 PM GERIATRIC NURSE ASSISTANT [facility] Comment: A negative serum IgA endomysial antibody is usually seen in normal individuals, however a diagnosis of celiac disease, dermatitis herpetiformis and other gluten sensitive disorders cannot be completely excluded, as this test may be negative in a subset of individuals with these disorders. If the clinical suspicion for one of these disorders is high, recommend further testing for gluten sensitivity as indicated by the Celiac Disease Comprehensive [place] ([place] Test [facility] Code CDCOM). In addition serum IgA endomysial antibody may also be negative in gluten-sensitive patients (with celiac disease, dermatitis herpetiformis or other gluten-sensitive disorders), who adhere to a strict gluten-free diet. ----ADDITIONAL INFORMATION---- This test has been modified from the sheep farmer's instructions. Its performance characteristics were determined by [facility] in a manner consistent with CLIA requirements. This test has not been cleared or approved by the U.S. Food and Drug Administration. Blood 11/02/2024 8:49 AM GERIATRIC NURSE ASSISTANT 11/05/2024 11:39 AM GERIATRIC NURSE ASSISTANT Jeff Mariano M.D., M.S. LAB BLOOD ADD-ON Final Result Performing Organization Address [facility]/ZIP Co de Phone Number [facility] [address] [place] [address], [facility] [address] [place] [address] [address] [place] [address] * (ABNORMAL) tTG (Tissue Transglutaminase), Antibody, IgA (11/02/2024 8:49 AM GERIATRIC NURSE ASSISTANT) Tissue Transglutaminase Ab, IgA, S 10.0(H) <4.0 (Negative ) U/mL 11/03/2024 6:30 PM GERIATRIC NURSE ASSISTANT [facility] Comment:Interpretation: Weak Positive (4.0-10.0) Blood 11/02/2024 8:49 AM GERIATRIC NURSE ASSISTANT 11/03/2024 12:33 PM GERIATRIC NURSE ASSISTANT Jeff Mariano M.D., M.S. LAB BLOOD ADD-ON Final Result Performing Organization Address City/[facility]/ZIP Co de Phone Number [facility] [address] [place] [address] [facility] [address] [place] [address] * Inflammatory Bowel Disease Serology Panel (11/02/2024 8:49 AM GERIATRIC NURSE ASSISTANT) Saccharomyces cerevisiae Ab, IgA, S 2.3 <20.0 (Negative) RU/mL 11/03/2024 10:33 AM GERIATRIC NURSE ASSISTANT [facility] Comment: ----ADDITIONAL INFORMATION---- This test was developed and its performance characteristics determined by [facility] in a manner consistent with CLIA requirements. This test has not been cleared or approved by the U.S. Food and Drug Administration. Saccharomyces cerevisiae Ab, IgG, S 8.3 <20.0 (Negative) RU/mL 11/03/2024 12:47 PM GERIATRIC NURSE ASSISTANT [facility] Comment: ----ADDITIONAL INFORMATION---- This test was developed and its performance characteristics determined by [facility] in a manner consistent with CLIA requirements. This test has not been cleared or approved by the U.S. Food and Drug Administration. Cytoplasmic Neutrophilic Ab IBD, S Negative Negative 11/03/2024 9:22 PM GERIATRIC NURSE ASSISTANT [facility] ANCA2 Interpretation Negative for S. cerevisiae antibodies and pANCA. This test should not be relied upon exclusively to establish a diagnosis of inflammatory bowel disease (IBD). Approximately 50% of individuals with IBD are negative for IgA and IgG S. cerevisiae and pANCA. Correlation of clinical symptoms, endoscopy and biopsy findings are required to establish the diagnosis. 11/03/2024 9:22 PM GERIATRIC NURSE ASSISTANT [facility] Comment: ----ADDITIONAL INFORMATION---- This test was developed and its performance characteristics determined by [facility] in a manner consistent with CLIA requirements. This test has not been cleared or approved by the U.S. Food and Drug Administration. Blood (Blood, Venous) 11/02/2024 8:49 AM GERIATRIC NURSE ASSISTANT 11/02/2024 6:19 PM GERIATRIC NURSE ASSISTANT Jeff Mariano M.D., M.S. LAB BLOOD ADD-ON Final Result [facility] [address] [place] [address] [facility] [address] [place] [address] [facility] [address] [place] [address] [place] [address] * Ova and Parasite, Travel History or Immunocompromised, Feces (10/31/2024 6:00 AM GERIATRIC NURSE ASSISTANT) Ova and Parasite, Microscopy, F No parasites seen. Leukocytes present. Cryptosporidium, Cyclospora, and microsporidia are not readily detected by this method. Single negative specimen does not rule out parasitic infection. 11/06/2024 10:20 PM GERIATRIC NURSE ASSISTANT DTL Stool (Stool) 10/31/2024 6:0 0 AM GERIATRIC NURSE ASSISTANT 11/02/2024 8:31 PM GERIATRIC NURSE ASSISTANT Comment:Specimen Source Site : Stool Jeff Mariano M.D. M.S. LAB MICROBIOLOGY - GENE [facility] ORDERABLES Final Result [facility] [address] [place] [address], [facility] DTFormerly named [facility] [address] [place] [address] * (ABNORMAL) Malabsorption Evaluation Panel, Feces (10/31/2024 6:00 AM GERIATRIC NURSE ASSISTANT) Gkrgn-[id number] , Random, F 6 <=54 mg/dL 11/03/2024 7:39 PM GERIATRIC NURSE ASSISTANT SDSC Comment: ----ADDITIONAL INFORMATION---- This test has been modified from the sheep farmer's instructions. Its performance characteristics were determined by [facility] in a manner consistent with CLIA requirements. This test has not been cleared or approved by the U.S. Food and Drug Administration. Calprotectin, F <50.0 <50.0 (Normal) mcg/g 11/04/2024 5:02 PM GERIATRIC NURSE ASSISTANT SDSC Pancreatic Elastase, F 41(L) >200 (Normal) mcg/g 11/04/2024 4:17 PM GERIATRIC NURSE ASSISTANT SDSC Comment: Interpretation: Abnormal (<100 mcg/g); Consistent with pancreatic insufficiency Reducing Substance, F Grade 1(H) Negative or Trace 11/03/2024 2:49 PM GERIATRIC NURSE ASSISTANT DTL Comment: Grade 1 (0.50 g/dL) ----ADDITIONAL INFORMATION---- This test was developed and its performance characteristics determined by [facility] in a manner consistent with CLIA requirements. This test has not been cleared or approved by the U.S. Food and Drug Administration. Stool (Stool) 10/31/2024 6:0 0 AM GERIATRIC NURSE ASSISTANT 11/04/2024 11:28 AM GERIATRIC NURSE ASSISTANT Narrative [facility] - 11/04/2024 5:02 PM GERIATRIC NURSE ASSISTANT Specimen Information: Specimen ID: [id number] Specimen Type: Stool Specimen Collection Start Date: 10/31/2024 6:00 AM Specimen Received Date: 11/04/2024 11:28 AM Specimen ID: [id number] Specimen Type: Stool Specimen Collection Start Date: 10/31/2024 6:00 AM Specimen Received Date: 11/04/2024 11:29 AM Specimen ID: [id number] Specimen Type: Stool Specimen Collection Start Date: 10/31/2024 6:00 AM Specimen Received Date: 11/03/2024 10:31 AM Specimen ID: [id number] Specimen Type: Stool Specimen Collection Start Date: 10/31/2024 6:00 AM Specimen Received Date: 11/03/2024 12:35 PM Jeff Mariano M.D., M.S. LAB BODY FLUIDS AND STO OLS ORDERABLES Final Result Performing Organization Address City/[facility]/ZIP Co de Phone Number [facility] [address] [facility] [place] [address] DT [address] [place] [address] * Enteric Pathogens Culture, Stool (10/31/2024 6:00 AM GERIATRIC NURSE ASSISTANT) Enteric Pathogens Culture, Stool No growth of Salmonella, Shigella, Yersinia, Campylobact er, or Aeromonas. 11/06/2024 10:08 AM GERIATRIC NURSE ASSISTANT DTL Stool (Stool) 10/31/2024 6:0 0 AM GERIATRIC NURSE ASSISTANT 11/02/2024 7:03 PM GERIATRIC NURSE ASSISTANT Comment:Specimen Source Site : Stool Jeff Mariano M.D., M.S. LAB MICROBIOLOGY - GENE RAL ORDERABLES Final Result Performing Organization Address City/[facility]/ZIP Co de Phone Number [facility] [address] DTL [facility] [address] [place] [address] * GI Pathogen Panel, PCR, Feces (10/29/2024 4:18 PM GERIATRIC NURSE ASSISTANT) Specimen Source STOOL 8:07 PM GERIATRIC NURSE ASSISTANT AUST Campylobacter species Negative Negative 10/29/2024 8:07 PM GERIATRIC NURSE ASSISTANT AUST C. difficile toxin Negative Negative 2024 8:07 PM GERIATRIC NURSE ASSISTANT AUST Plesiomonas shigelloides Negative Negative 10/29/2024 8:07 PM GERIATRIC NURSE ASSISTANT AUST Salmonella species Negative Negative 2024 8:07 PM GERIATRIC NURSE ASSISTANT AUST Vibrio species Negative Negative 10/29/2024 8:07 PM GERIATRIC NURSE ASSISTANT AUST Vibrio cholerae Negative Negative 8:07 PM GERIATRIC NURSE ASSISTANT AUST Yersinia species Negative Negative 10/29/19 8:07 PM GERIATRIC NURSE ASSISTANT AUST Enteroaggregative E. coli (EAEC) Negative Negative 10/29/2024 8:07 PM GERIATRIC NURSE ASSISTANT AUST Enteropathogenic E. coli (EPEC) Negative Negative 10/29/2024 8:07 PM GERIATRIC NURSE ASSISTANT AUST Enterotoxigenic E. coli (ETEC) Negative Negative 10/29/2024 8:07 PM GERIATRIC NURSE ASSISTANT AUST Shiga toxin producing E. coli Negative Negative 10/29/2024 8:07 PM GERIATRIC NURSE ASSISTANT AUST Shigella/Enteroinvas kayla E. coli Negative Negative 10/29/2024 8:07 PM GERIATRIC NURSE ASSISTANT AUST Cryptosporidium species Negative Negative 10/29/2024 8:07 PM GERIATRIC NURSE ASSISTANT AUST Cyclospora cayetanensis Negative Negative 10/29/2024 8:07 PM GERIATRIC NURSE ASSISTANT AUST Entamoeba histolytica Negative Negative 10/29/2024 8:07 PM GERIATRIC NURSE ASSISTANT AUST Giardia Negative Negative 10/29/2024 8:07 PM GERIATRIC NURSE ASSISTANT AUST Adenovirus F40/41 Negative Negative 025 8:07 PM GERIATRIC NURSE ASSISTANT AUST Astrovirus Negative Negative 10/29/2024 8:07 PM GERIATRIC NURSE ASSISTANT AUST Norovirus GI/GII Negative Negative 10/29/19 25 8:07 PM GERIATRIC NURSE ASSISTANT AUST Rotavirus Ag, F Negative Negative 8:07 PM GERIATRIC NURSE ASSISTANT AUST Sapovirus Negative Negative 10/29/2024 8:07 PM GERIATRIC NURSE ASSISTANT AUST Comment: ----ADDITIONAL INFORMATION---- This assay is performed using the FDA-cleared FilmArray GI Panel ([employer] Stool (Stool) 10/29/2024 4:1 8 PM GERIATRIC NURSE ASSISTANT 10/29/2024 4:34 PM GERIATRIC NURSE ASSISTANT us Jeff Mariano M.D., M.S. LAB MICROBIOLOGY - GENE RAL ORDERABLES Final Result Performing Organization Address City/[facility]/ZIP Co de Phone Number [facility] [address] [place] [address], [place] AUST [address] [place] [address] * PUL Exhaled Nitric Oxide (09/29/2024 10:05 AM GERIATRIC NURSE ASSISTANT) Exhaled NO Oral 20 ONBASE Comment:20, 17 Taco Terrell P.A.-C. PFT ORDERABLES Final Res ult Performing Organization Address City/[facility] Co de Phone Number ONBASE NA * DX Chest AP or PA and Lateral 2 Views (09/29/2024 10:02 AM GERIATRIC NURSE ASSISTANT) Anatomical Region Laterality Modality Chest, Thoracic RST LOS, Tho racic ARZ LOS, Thoracic FLA LOS N/A Digital Radiography Impressions 09/29/2024 10:26 AM GERIATRIC NURSE ASSISTANT No acute cardiopulmonary abnormality. Narrative 09/29/2024 10:26 AM GERIATRIC NURSE ASSISTANT EXAM: DX CHEST AP OR PA AND LATERAL 2 VIEWS COMPARISON: Radiograph 07/14/2023 FINDINGS: Trachea is midline. Cardiac and mediastinal borders are clear. Cardiac silhouette is nonenlarged. Scattered granulomas, similar to prior. Calcified hilar lymph nodes. No focal consolidation. No pleural effusion or pneumothorax. Visualized upper abdomen is unremarkable. Procedure Note Ayaan Perales M.D. - 09/29/2024 EXAM: DX CHEST AP OR PA AND LATERAL 2 VIEWS COMPARISON: Radiograph 07/14/2023 FINDINGS: Trachea is midline. Cardiac and mediastinal borders are clear.Cardiac silhouette is nonenlarged. Scattered granulomas, similar to prior.Calcified hilar lymph nodes. No focal consolidation. No pleural effusionor pneumothorax. Visualized upper abdomen is unremarkable. IMPRESSION: No acute cardiopulmonary abnormality. Taco Terrell P.A.-C. IMG DIAGNOSTIC IMAGING ND OCEDURES Final Result * Pulmonary Function Tests (09/29/2024 9:57 AM GERIATRIC NURSE ASSISTANT) FVC 5.09 L COP[facility]AND BREEZ E SUITE FVC% 96 % [facility] PostFVC 4.89 L [facility] E SUITE FVCLLN 4.09 L [facility] E SUITE FEV1 3.55 L [facility]REE[facility] E SUITE FEV1% 86 % [facility] PostFEV1 3.45 L [facility]REE[facility] E SUITE PostFEV1%Stewart e -2 % [facility] [place]REE[place] SUITE BUE3NSG 3.17 L [facility]REE[facility] E SUITE FEV1/FVC 70 % [facility]REE[facility] E SUITE FEV1/FVCLLN 67 % COPELAND JORGE VERONICA SUITE FEF 25-75 2.32 L/sec [facility] E SUITE TGX87-96% 64 % [facility] E SU[facility] [id number] 1.87 L/sec COPELAND JORGE VERONICA SUITE SVC 5.10 L [facility]REE[facility] E SUITE RV 2.37 L [facility]REEZ E SUITE RVULN 3.21 L [facility]REE[facility] E SUITE TLC 7.46 L [facility] BREEZ E SUITE TLC% 102 % [facility] [place]REE[place] E SUITE TLCLLN 5.57 L [facility]REE[facility] E SUITE RV/TLC 32 % [facility]REE[facility] E SUITE RV/TLC% 90 % [facility] BREEZ E SUITE RV/TLCuln 47 % [facility] BREEZ E SUITE DLCO 28.24 ml/min/mmH g [facility] [place] SUITE DLCO% 91 % [facility] E SU[facility] DLCOlln 22.91 ml/min/mmH g [facility] SUITE VA 6.80 L [facility] E SU[address] VA% 93 % [facility] SU[address] VAlln 5.88 L [facility] SU[facility] Height 183.50 [facility] Weight in Kg 94.50 COPELAND BR EEZE SUITE BMI 28.1 COP[facility] BREEZ E SUITE 09/29/2024 9:21 AM GERIATRIC NURSE ASSISTANT Impressions DINORAH SPICER - 09/29/2024 8:24 PM GERIATRIC NURSE ASSISTANT Normal pulmonary function tests This interpretation has been electronically signed: Ramandeep Kaplan 09/29/2024 08:23:39 PM Narrative Procedure Note Ramandeep Kaplan M.D. - 09/29/2024 IMPRESSION: Normal pulmonary function tests This interpretation has been electronically signed: RosauraRamandeep09/29/2024 08:23:39 PM us Taco Terrell P.A.-C. PFT ORDERABLES Final Res ult DINORAH SPICER NA from Last 3 Months Insurance [address] [place] [id number] MEDICA Advance Directives For more information, please contact: [phone] * Full Code (Latest Code Status on File) Date Activated Date Inactivated Comments 11/20/2024 12:22 PM 11/21/2024 5:29 AM Question Answer Comments Full Code: Not Discussed Due to: Not medically appropriate Care Teams Vp Relationship Specialty Start Date End Date Therese Durán P.A.-C., P.A., M.S. [address] [place] [phone] PCP - General Family Medicine 04/08/24
--- OUTSIDE RECORDS SUMMARY | 2024-12-18 10:41 | XMS_ITS | Encounter Summary ---
Author Organization [facility] Address [address] [place] [address] Care Team Providers Care Caustic Loader Name Role Phone Therese Durán P.A.-C., P.A., M.S. Primary Ca re Provider Reason for Visit * Reason Comments Immunotherapy * Outpatient (Routine) - Authorized Specialty Diagnoses / Procedures Referred By Contac t Referred To Contact Diagnoses Rhinitis Procedures Immunotherapy: Sub-cutaneous (SQ) injection Al Cespedes M.D. [address] [place] [address] Phone: tel: fax: [facility] Region Referral ID Status Reason Start Date Expiration Date V isits Requested Visits Authorized [id number] Authorized 2024 2025 100 100 Encounter Details Date Type Department Care Team (Latest Contact Info) Description 11/20/2024 11:00 AM LAPPING MACHINE TENDER Ancillary Procedure Department of Allergy in [place], [place] [address] [place] [address] Al Cespedes M.D. [address] [place] [phone] Almita Monroy, L.P.N. Rhinitis Discharge Disposition: Home or Self Care Social History Tobacco Use Types Packs/Day Years Used Date Smoking Tobacco: Never Smokeless Tobacco: Never Alcohol Use Standard Drinks/Week Comments Yes 0 (1 standard drink = 0.6 oz pur e alcohol) [facility] Utilities Answer Date Recorded In the past 12 months has th e [employer], [employer], oil, or water [employer] threatened to shut off services in your [...] on file Legal Sex Male 8:19 AM LAPPING MACHINE TENDER Gender Identity Not on file Sexual Orientation Not on file documented as of this encounter Patient Instructions * Patient Instructions* Almita Monroy, L.P.N. - 11/20/2024 11:00 AM LAPPING MACHINE TENDER Allergy shots Patient Instructions for Follow up 11/20/24 Your next dose is due in 3 weeks +/- 2 days If you fail to be seen [...] room. For non-emergent symptoms contact your provider. ING MACHINE TENDER documented in this encounter Nursing Notes * Almita Monroy L.P.N. - 11/20/2024 11:12 AM CST Sae presented to the Allergy Department for immunotherapy injection(s) today. You are in the Stretching Phase. You are due on 12/11/24, for your 3 week stretch. Your window to return is between 12/09/24 and 12/13/24. If you are beyond this window, you will fall out of protocol and we will need to contact your provider for recommendations regarding dosing. . ING MACHINE TENDER documented in this encounter Plan of Treatment Upcoming Encounters Date Type Department Care Team (Latest Contact Info) Description 01/08/2025 10:00 AM CDT Ancillary Procedure Department of Allergy in [place], [place] [address] [place] [address] Al Cespedes M.D. [address] [place] [address] 03/05/2025 10:00 AM CDT Ancillary Procedure Department of Allergy in [place], [place] [address] [place] [address] Al Cespedes M.D. [address] [place] [address] Discharge Disposition: Home or Self Care documented as of this encounter Visit Diagnoses Diagnosis Rhinitis documented in this encounter Care Teams Caustic Loader Relationship Specialty Start Date End Date Sigwarth, Therese M, P.A.-C., P.A., M.S. [address] [place] [phone] PCP - General Family Medicine 04/08/24 documented as of this encounter
--- OUTSIDE RECORDS SUMMARY | 2024-12-18 10:41 | XMS_ITS | Encounter Summary ---
Author Organization [facility] Address [address] [place] [address] Care Team Providers Care Vegetable Scullion Name Role Phone Therese Durán P.A.-C., P.A., M.S. Primary Ca re Provider Reason for Visit * Reason Comments Immunotherapy * Outpatient (Routine) - Authorized Specialty Diagnoses / Procedures Referred By Contkayla t Referred To Contact Diagnoses Rhinitis Procedures Immunotherapy: Sub-cutaneous (SQ) injection Al Cespedes M.D. [address] [place] [address] Phone: tel: fax: [facility] Referral ID Status Reason Start Date Expiration Date V isits Requested Visits Authorized [id number] Authorized 2024 2025 100 100 Encounter Details Date Type Department Care Team (Latest Contact Info) Description 09/28/2024 1:00 PM PAINTER AND PAPERHANGER APPRENTICE Ancillary Procedure Department of Allergy in [place], [place] [address] [place] [address] Al Cespedes M.D. [address] [place] [phone] Rhinitis Discharge Disposition: Home or Self Care Social History Tobacco Use Types Packs/Day Years Used Date Smoking Tobacco: Never Smokeless Tobacco: Never Alcohol Use Standard Drinks/Week Comments Yes 0 (1 standard drink = 0.6 oz pur e alcohol) [facility] Utilities Answer Date Recorded In the past 12 months has [employer], gas, oil, or water [employer] threatened to shut off services in your [...] on file Legal Sex Male 8:19 AM PAINTER AND PAPERHANGER APPRENTICE Gender Identity Not on file Sexual Orientation Not on file documented as of this encounter Patient Instructions * Patient Instructions* Heather Barfield, R.N. - 09/28/2024 1:00 PM PAINTER AND PAPERHANGER APPRENTICE Allergy shots Patient Instructions for Follow up 09/28/24 Your next dose is due in 2-8 days If you fail to be seen [...] room. For non-emergent symptoms contact your provider. TER AND PAPERHANGER APPRENTICE documented in this encounter Nursing Notes * Heather Barfield R.N. - 09/28/2024 1:02 PM CST Sae presented to the Allergy Department for immunotherapy injection(s) today. You are in the Building Phase. You are due back for your allergy shot between and 10/06/24. If you are beyond this window, you will fall into the late protocol and will need adjustments to your dosing and appointments.. TER AND PAPERHANGER APPRENTICE documented in this encounter Plan of Treatment Upcoming Encounters Date Type Department Care Team (Latest Contact Info) Description 01/08/2025 10:00 AM CDT Ancillary Procedure Department of Allergy in [place], [place] [address] [place] [address] Al Cespedes M.D. [address] [place] [address] 03/05/2025 10:00 AM CDT Ancillary Procedure Department of Allergy in [place], [place] [address] [place] [address] Al Cespedes M.D. [address] [place] [address] Discharge Disposition: Home or Self Care documented as of this encounter Visit Diagnoses Diagnosis Rhinitis documented in this encounter Care Teams Vegetable Scullion Relationship Specialty Start Date End Date Therese Durán P.A.-C., P.A., M.S. [address] [phone] PCP - General Family Medicine 04/08/24 documented as of this encounter
--- OUTSIDE RECORDS SUMMARY | 2024-12-18 10:41 | XMS_ITS | Encounter Summary ---
Author Organization [facility] Address [address] [place] [address] Care Team Providers Care Boomswing Operator Name Role Phone Therese Durán P.A.-C., P.A., M.S. Primary Ca re Provider Reason for Visit * Reason Comments Immunotherapy * Outpatient (Routine) - Authorized Specialty Diagnoses / Procedures Referred By Contkayla t Referred To Contact Diagnoses Rhinitis Procedures Immunotherapy: Sub-cutaneous (SQ) injection Al Cespedes M.D. [address] [place] [address] Phone: tel: fax: [facility] Referral ID Status Reason Start Date Expiration Date V isits Requested Visits Authorized [id number] Authorized 2024 2025 100 100 Encounter Details Date Type Department Care Team (Latest Contact Info) Description 12/11/2024 10:00 AM CDT Ancillary Procedure Department of Allergy in [place], [place] [address] [place] [address] Al Cespedes M.D. 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 - 12/11/2024 10:00 AM CDT Allergy shots Patient Instructions for Follow up 12/11/24 Your next dose is due 01/08/25, +/- 8 days If you fail to be [...] room. For non-emergent symptoms contact your provider. documented in this encounter Plan of Treatment Upcoming Encounters Date Type Department Care Team (Latest Contact Info) Description 01/08/2025 10:00 AM CDT Ancillary Procedure Department of Allergy in [place], [place] [address] [place] [address] Al Cespedes M.D. [address] [place] [address] 03/05/2025 10:00 AM CDT Ancillary Procedure Department of Allergy in [place], [place] [address] [place] [address] Al Cespedes M.D. [address] [place] [address] Discharge Disposition: Home or Self Care documented as of this encounter Visit Diagnoses Diagnosis Rhinitis documented in this encounter Care Teams Boomswing Operator Relationship Specialty Start Date End Date Therese Durán P.A.-C., P.A., M.S. [address] [address] PCP - General Family Medicine 04/08/24 documented as of this encounter
--- OUTSIDE RECORDS SUMMARY | 2024-12-18 10:41 | XMS_ITS | Encounter Summary ---
Author Organization [facility] Address [address] [place] [address] Care Team Providers Care Brick Picker Name Role Phone Therese Durán P.A.-C., P.A., M.S. Primary Ca re Provider Encounter Details Date Type Department Care Team (Latest Contact Info) Description 11/20/2024 11:27 AM CONTROL PANEL TESTER Anesthesia Event Department of Gastroenterology in [place], [place] [address] [place] [phone] Leidy Castro M.D., M.S. [address] [place] [address] Fabian Perez D.O. [address] [place] [phone] Anesthesia Record Procedure Summary Procedure Name Responsible Anesthesiologist Anesthesia Start Time Anesthesia Stop Time EGD (ESOPHAGOGASTRODUOD ENOSCOPY) Events Date Time Event Comment 11/20/2024 1156 Meds * Agents No agents on file. * Blood No blood administrations on file. Lines, Drains, and Airways Type Details Placement Removal Peripheral IV Placement Date: 11/01 10/24; Placement Time: 1135; Catheter Size: 20 G; Orientation: Anterior, Lower, Right; Location: Forearm; Site Prep: Chlorhexidine (Preferred); Technique: Anatomical landmarks; Inserted by: lizeth; Insertion Attempts: 1 11/20/24 1135 by Lizeth Aparicio, R.N. documented in this encounter Social History Tobacco Use Types Packs/Day Years Used Date Smoking Tobacco: Never Smokeless Tobacco: Never Alcohol Use Standard Drinks/Week Comments Yes 0 (1 standard drink = 0.6 oz pur e alcohol) [facility] Utilities Answer Date Recorded In the [...] on file Legal Sex Male 8:19 AM CONTROL PANEL TESTER Gender Identity Not on file Sexual Orientation Not on file documented as of this encounter OR Notes * Anesthesia Preprocedure Evaluation - Leidy Castro M.D., M.S. - 11/20/2024 11:56 AM CST Preprocedure Anesthesia & H&P Assessment Procedure Summary Date/Time: 11/20/24 1200 Scheduled providers: Leelee Gallegos M.D.; Yohan Mandel P, TREASURY REPRESENTATIVE, LINER INSERTER Procedure: EGD (ESOPHAGEALGASTRODUODENOSCOPY) Diagnosis: Celiac Disease [K90.0] Location: Department of Gastroenterology in [place], [place] Pertinent components of the patient's history including current problem list, medical history, surgical history, family history, social history, medications and allergies were reviewed. Present illness and pre-op diagnosis were confirmed. The planned surgery / procedure was verified with the patient / legal guardian. The patient's general health condition remains unchanged RELEVANT COMORBID CONDITIONS RESP (+) Asthma Mild Intermittent With Acute Exacerbation (HCC) GI (+) Gastroesophageal Reflux Disease Without Esophagitis OBJECTIVE PHYSICAL EXAMINATION Airway (HEENT) Mallampati: II TM Distance: >3 FB Neck ROM: Full Mouth Opening: >3 cm Cardiovascular Rhythm: Regular Rate: Normal Cardiovascular Assessment: cardiovascular normal Functional Capacity: >4 METS Pulmonary Pulmonary Assessment: Clear General / Constitutional Constitutional Assessment: Normal General State of Health:: healthy appearing and calm Neurological Neurologic Assessment: alert Dental Dental Assessment: dentition intact ASSESSMENT / PLAN ANESTHESIA PLAN ASA: 3 Anesthesia Plan: MAC Patient seen and allergies reviewed, anesthesia plan and risks discussed directly with patient /legal guardian or through an core loader. The use of blood products not discussed Approval to Proceed: approved for anesthesia ROL PANEL TESTER documented in this encounter Plan of Treatment Upcoming Encounters Date Type Department Care Team (Latest Contact Info) Description 01/08/2025 10:00 AM CDT Ancillary Procedure Department of Allergy in [place], [place] [address] [place] [address] Al Cespedes M.D. [address] [place] [address] 03/05/2025 10:00 AM CDT Ancillary Procedure Department of Allergy in [place], [place] [address] [place] [address] Al Cespedes M.D. [address] [place] [address] Discharge Disposition: Home or Self Care documented as of this encounter Visit Diagnoses Not on filedocumented in this encounter Care Teams Brick Picker Relationship Specialty Start Date End Date Therese Durán P.A.-C., P.A., M.S. [address] [place] [phone] PCP - General Family Medicine 04/08/24 documented as of this encounter
--- OUTSIDE RECORDS SUMMARY | 2024-12-18 10:41 | XMS_ITS | Encounter Summary ---
Author Organization [facility] Address [address] [place] [address] Care Team Providers Care Devops Developer Name Role Phone Therese Durán P.A.-C., P.A., M.S. Primary Ca re Provider Reason for Visit * Reason Comments Cough * Appointment Request (Routine) - Closed Specialty Diagnoses / Procedures Referred By Liliana t Referred To Contact Family Medicine Referral ID Status Reason Start Date Expiration Date Visits Re quested Visits Authorized [id number] Closed 12/15/2024 03/17/2026 1 1 Encounter Details Date Type Department Care Team (Late st Contact Info) Description 12/16/2024 8:30 AM CDT Office Visit Department of Family Medicine, [facility], in [place], [place] [address] [place] [phone] Neil Roberts II, M.D. [address] [place] [address] Eosinophilic Asthma (HCC) (Primary Dx); Chronic Cough; Desensitization To Allergies Discharge Disposition: Home or Self Care Social History Tobacco Use Types Packs/Day Years Used Date Smoking Tobacco: Never Smokeless Tobacco: Never Alcohol Use Standard Drinks/Week Comments Yes 0 (1 standard drink = 0.6 oz pur e alcohol) [facility] Utilities Answer Date Recorded In the [...] on file Legal Sex Male 8:19 AM MANUFACTURING ASSOCIATE Gender Identity Not on file Sexual Orientation Not on file documented as of this encounter Plan of Treatment Upcoming Encounters Date Type Department Care Team (Latest Contact Info) Description 01/08/2025 10:00 AM CDT Ancillary Procedure Department of Allergy in [place], [place] [address] [place] [address] Al Cespedes M.D. [address] [place] [address] 03/05/2025 10:00 AM CDT Ancillary Procedure Department of Allergy in [place], [place] [address] [place] [address] Al Cespedes M.D. [address] [place] [address] Discharge Disposition: Home or Self Care documented as of this encounter Visit Diagnoses Diagnosis Eosinophilic Asthma (HCC)- Primary Chronic Cough Desensitization To Allergies documented in this encounter Care Teams Devops Developer Relationship Specialty Start Date End Date Therese Durán P.A.-C., P.A., M.S. [address] [place] [phone] PCP - General Family Medicine 04/08/24 documented as of this encounter
--- OUTSIDE RECORDS SUMMARY | 2024-12-18 10:42 | XMS_ITS | Encounter Summary ---
Author Organization [facility] Address [address] [place] [address] Care Team Providers Care Covering Machine Operator Name Role Phone Therese Durán P.A.-C., P.A., M.S. Primary Ca re Provider Reason for Referral * Outpatient (Routine) - Closed Specialty Diagnoses / Procedures Referred By Contac t Referred To Contact Diagnoses Celiac Disease Procedures EGD (EsophagealGastroDuodenoscopy ) Farzaneh Jordan M.D., Ph.D. [address] [place] [address] Phone: tel: fax: [facility] Referral ID Status Reason Start Date Expiration Date Visits Re quested Visits Authorized [id number] Closed 11/16/2024 02/16/2026 1 1 PUBLISHER Reason for Visit * Outpatient (Routine) - Closed Specialty Diagnoses / Procedures Referred By Contact Referred To Contact Gastroenterology and Hepatology Diagnoses Diarrhea Celiac Disease Jeff Mariano M.D., M.S. [address] [place] [address] Phone: tel: fax: [facility] Referral ID Status Reason Start Date Expiration Date Visits Re quested Visits Authorized [id number] Closed 11/07/2024 05/09/2026 1 1 Encounter Details Date Type Department Care Team (Latest Contact Info) Description 11/16/2024 2:10 PM WEB PUBLISHER Comprehensive Visit Division of Gastroenterology in [place], [place] [address] [place] [address] Jeff Mariano M.D., M.S. [address] [place] [address] Farzaneh Jordan M.D., Ph.D. [address] [place] [address] Diarrhea; Celiac Disease Social History Tobacco Use Types Packs/Day Years Used Date Smoking Tobacco: Never Smokeless Tobacco: Never Alcohol Use Standard Drinks/Week Comments Yes 0 (1 standard drink = 0.6 oz pur e alcohol) [facility] Utilities Answer Date Recorded In the past [...] on file Legal Sex Male 8:19 AM WEB PUBLISHER Gender Identity Not on file Sexual Orientation Not on file documented as of this encounter Consult Notes * Farzaneh Jordan M.D., Ph.D. - 11/16/2024 2:10 PM CST Gastroenterology & Hepatology Clinic Note DATE: 11/16/2024 REFERRING PROVIDER: Jeff Mariano M.D., M.* PRIMARY CARE PROVIDER: Primary Care Providers: Therese Durán P.A.-C., P.A., * (General) [address] [place] [address] Supervising Senior Architectural Designer: Checo Greene MD CHIEF COMPLAINT / REASON FOR VISIT Diarrheal syndrome with abnormal celiac disease serology cascade, evaluate for celiac disease SUBJECTIVE HISTORY OF PRESENT ILLNESS Mr. Alcazar is a 54 y.o. male from [place], [place] who presents to [facility] for evaluation of diarrheal syndrome with abnormal celiac disease serology cascade. Mr. Alcazar presented to his primary care physician on 10/29/24 with a 3 week history of diarrhea, consisting of >4 bowel movements/day. Stool consistency was described as watery/loose without blood. He reports that it was quite variable, up to 6-8 times per day, sometimes semi-solid, sometimes watery. He noted fecal urgency, particularly in the morning. Today, he had a more formed bowel movement like his baseline morning bowel movement but did still have some urgency. He had no associated symptoms such as abdominal pain, arthralgias, chills, fever, vomiting, or unexpected weight loss. He reported no recent sick contacts, no recent travel, or recent hospitalization. Of note, he did receive a 5 day course of azithromycin on 10/05/24 for acute bronchitis, which was started prior to the onset of these symptoms. He had also been started on omeprazole by pulmonology on 10/06/24 for suspected GERD but he discontinued this due to concern that it was associated with his symptoms. Workup has included a negative GI pathogen panel and enteric pathogens culture as well as ova and parasite stool test. He did have slightly low stool pancreatic elastase and negative fecal calprotectin and random [id number]. Celiac disease cascade was notable for normal IgA, tissue transglutaminase IgA elevated to 10.0 (ref <4) and deaminated gliadin IgA elevated to 48.3 (ref <20). Review of systems Other than the pertinent positives and negatives listed in the HPI, a full review of systems including constitutional, HEENT, respiratory, cardiovascular, abdominal, musculoskeletal, genitourinary, neurological, psychiatric, endocrinologic, hematologic, and dermatologic complaints was negative. Past Medical History Exercise-induced asthma. Since late , previously requiring mild albuterol use infrequently, tough with worsening symptoms in last 3 years. Allergic rhinitis. Undergoing immunotherapy under direction of Allergy and Immunology. Sleep apnea. Uses CPAP. Past Surgical History Disc arthroplasty 2022 Family History Father - stroke, hyperlipidemia Brother - coronary artery disease Sister and other sister's niece - gluten sensitivity Heart disease, back problems. Social History Works in [employer], remote via phone. Alcohol 1-2 per day, no tobacco, occasional marijuana. OBJECTIVE VITAL SIGNS There were no vitals taken for this visit. PHYSICAL EXAMINATION General: No acute distress HEENT: No scleral icterus, moist mucous membranes Lungs: No increased work of breathing. Abdomen: Nondistended. Skin: No visible rashes. Not jaundiced. Neuro: Alert, oriented. Moving extremities spontaneously. DIAGNOSTIC WORKUP: See HPI ASSESSMENT / PLAN Positive celiac serology It was a pleasure to meet Mr. Alcazar, a 54 y.o. male who presents to [facility] for evaluation ofdiarrheal syndrome with abnormal celiac cascade. This visit was conducted under the direct supervision of retail sales vitamin consultant Checo Greene MD. Mr. Alcazar is a 54 y.o. male who presents with about 5 weeks of new onset diarrhea characterized by loose stools up to 6-8 times per day that began after starting a course of antibiotics with work-up significant for weakly positive celiac serology. As there is a 2-5% rate of false positive testingfor this serology, we discussed proceeding to duodenal biopsy to confirm diagnosis. It is possible that he is asymptomatic from a celiac disease perspective but had a more acute diarrhea syndrome of a different etiology that appears to be improving. Discussed that whether or not these symptoms are being caused by celiac disease, there would still be an indication to adhere to a gluten free diet if this diagnosis is confirmed, which is to reduce the risk of a rare GI malignancy. We will proceed to endoscopy with biopsy to confirm diagnosis of celiac disease. If consistent, then will connect him to nutrition for education on gluten free diet and perform testing to assess for nutritional deficiencies. If not consistent with celiac disease, it is possible that these are false positive serologies perhaps in the setting of another inflammatory condition, such as an acute gastroenteritis. Recommendations: - Ok to continue gluten-containing diet until diagnosis is confirmed - EGD with duodenal biopsies split in 1st and 2nd part of duodenum (ok to do locally in [place], which patient requested) - Will follow-up with patient via portal after EGD results Orders Placed This Encounter Procedures EGD (EsophagealGastroDuodenoscopy) I personally spent over half of total 45 minutes in counseling and discussion with the patient and coordination of care as described above. CC: Jeff Mariano M.D., M.* Farzaneh Jordan MD, PhD PGY-3 Gastroenterology and Hepatology Fellow Pager: [phone] PUBLISHER * Checo Greene M.D. - 11/16/2024 2:10 PM CST SUBJECTIVE Supervisory note for Farzaneh Jordan. ASSESSMENT / PLAN Dr. Jordan told me of Mr. Alcazar's, it seems, relatively short history of diarrhea, which is nowspontaneously improving. As part of evaluation, he had tissue transglutaminase IgA that was 10, normal range less than 4, and deamidated gliadin 48.3, normal less than 20. He is generally well. He does have a family history of his one sister has gluten sensitivity, and he has a niece, who is the daughter of another sister, who also apparently is gluten sensitive, and he does not know whether theyhave diagnosed celiac disease or not. Generally apparently he is healthy without any obvious nutritional deficiency. I concur with Dr. Jordan's plan to undertake an endoscopy with biopsies of the duodenum to confirm or refute the diagnosis. This should be done before any change in diet is occasioned. If there is confirmation of celiac disease, then we will proceed with checking his nutritional state, a bone density. If celiac disease is confirmed in him, then his first-degree relatives shouldbe tested for celiac disease. Checo Greene M.D. CT CT Job ID: [id number] PUBLISHER documented in this encounter Plan of Treatment Upcoming Encounters Date Type Department Care Team (Latest Contact Info) Description 01/08/2025 10:00 AM CDT Ancillary Procedure Department of Allergy in [place], [place] [address] [place] [address] Al Cespedes M.D. [address] [place] [address] 03/05/2025 10:00 AM CDT Ancillary Procedure Department of Allergy in [place], [place] [address] [address] Al Cespedes M.D. [address] [place] [address] Discharge Disposition: Home or Self Care Scheduled Orders Name Type Priority Associated Diagnoses Orde r Schedule EGD (EsophagealGastroDuoden oscopy) GI Routine Celiac Disease Expected: 11/16/2024, Expires: 02/13/2026 documented as of this encounter Visit Diagnoses Diagnosis Diarrhea Celiac Disease documented in this encounter Care Teams Covering Machine Operator Relationship Specialty Start Date End Date Therese Durán P.A.-C., P.A., M.S. [address] [place] [address] PCP - General Family Medicine 04/08/24 documented as of this encounter
--- OUTSIDE RECORDS SUMMARY | 2024-12-18 10:42 | XMS_ITS | Encounter Summary ---
Author Organization [facility] Address [address] [place] [address] Care Team Providers Care Medical Transcription Supervisor Name Role Phone Therese Durán P.A.-C., P.A., M.S. Primary Ca re Provider Encounter Details Date Type Department Care Team (Late st Contact Info) Description 12/04/2024 CPAP Download Remote Patient Monitoring [facility] [address] [place] [address] 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 [address] [place] [address] 03/05/2025 10:00 AM CDT Ancillary Procedure Department of Allergy in [place], [place] [address] [address] Al Cespedes M.D. [address] [place] [address] Discharge Disposition: Home or Self Care documented as of this encounter Visit Diagnoses Not on filedocumented in this encounter Care Teams Medical Transcription Supervisor Relationship Specialty Start Date End Date Therese Durán P.A.-C., P.A., M.S. [address] [place] [address] PCP - General Family Medicine 04/08/24 documented as of this encounter
--- OUTSIDE RECORDS SUMMARY | 2024-12-18 10:42 | XMS_ITS | Encounter Summary ---
Author Organization [facility] Address [address] [place] [address] Care Team Providers Care Napper Runner Name Role Phone Therese Durán P.A.-C., P.A., M.S. Primary Ca re Provider Reason for Visit * Reason Comments Immunotherapy * Outpatient (Routine) - Authorized Specialty Diagnoses / Procedures Referred By Contkayla t Referred To Contact Diagnoses Rhinitis Procedures Immunotherapy: Sub-cutaneous (SQ) injection Al Cespedes M.D. [address] [place] [address] Phone: tel: fax: [facility] Region Referral ID Status Reason Start Date Expiration Date V isits Requested Visits Authorized [id number] Authorized 2024 2025 100 100 Encounter Details Date Type Department Care Team (Latest Contact Info) Description 11/05/2024 11:00 AM MEMBER OF CONGRESS Ancillary Procedure Department of Allergy in [place], [place] [address] [place] [address] Al Cespedes M.D. [address] [place] [phone] Rhinitis Discharge Disposition: Home or Self Care Social History Tobacco Use Types Packs/Day Years Used Date Smoking Tobacco: Never Smokeless Tobacco: Never Alcohol Use Standard Drinks/Week Comments Yes 0 (1 standard drink = 0.6 oz pur e alcohol) [facility] Utilities Answer Date Recorded In the past 12 months has [employer], gas, oil, or water [employer] threatened to shut off services in your [...] on file Legal Sex Male 8:19 AM MEMBER OF CONGRESS Gender Identity Not on file Sexual Orientation Not on file documented as of this encounter Patient Instructions * Patient Instructions* Heather Barfield, R.N. - 11/05/2024 11:00 AM MEMBER OF [employer]GRESS Allergy shots Patient Instructions for Follow up 11/05/24 Your next dose is due in 2 weeks, +/- 2 days If you fail to [...] room. For non-emergent symptoms contact your provider. [facility] documented in this encounter Nursing Notes * Heather Barfield R.N. - 11/05/2024 11:43 AM CST Sae presented to the Allergy Department for immunotherapy injection(s) today. You are in the Stretching Phase. You are due on 11/20/24, for your 2 week stretch. Your window to return is between 10/18/24 and 10/22/24. If you are beyond this window, you will fall out of protocol and we will need to contact your provider for recommendations regarding dosing. . [facility] documented in this encounter Plan of Treatment Upcoming Encounters Date Type Department Care Team (Latest Contact Info) Description 01/08/2025 10:00 AM CDT Ancillary Procedure Department of Allergy in [place], [place] [address] [address] Al Cespedes M.D. [address] [place] [address] 03/05/2025 10:00 AM CDT Ancillary Procedure Department of Allergy in [place], [place] [address] [place] [address] Al Cespedes M.D. [address] [place] [phone] Discharge Disposition: Home or Self Care documented as of this encounter Visit Diagnoses Diagnosis Rhinitis documented in this encounter Care Teams Napper Runner Relationship Specialty Start Date End Date Therese Durán P.A.-C., P.A., M.S. PHILI: [phone] [address] [place], [place] [phone] PCP - General Family Medicine 04/08/24 documented as of this encounter
--- OUTSIDE RECORDS SUMMARY | 2024-12-18 10:42 | XMS_ITS | Encounter Summary ---
Author Organization [facility] Address [address] [place] [address] Care Team Providers Care Division Road Supervisor Name Role Phone Therese Durán P.A.-C., P.A., M.S. Primary Ca re Provider Reason for Referral * Outpatient (Routine) - Closed Specialty Diagnoses / Procedures Referred By Liliana kelly Referred To Contact Diagnoses Celiac Disease Procedures EGD (EsophagealGastroDuodenoscopy ) Farzaneh Jordan M.D., Ph.D. [address] [place] [address] Phone: tel: fax: [facility] Region Referral ID Status Reason Start Date Expiration Date Visits Re quested Visits Authorized [id number] Closed 11/16/2024 02/16/2026 1 1 ICIAN ASSISTANT SURGERY Reason for Visit * Outpatient (Routine) - Closed Specialty Diagnoses / Procedures Referred By Contac t Referred To Contact Diagnoses Celiac Disease Procedures EGD (EsophagealGastroDuodenoscopy ) Farzaneh Jordan M.D., Ph.D. [address] [place] [address] Phone: tel: fax: [facility] Region Referral ID Status Reason Start Date Expiration Date Visits Re quested Visits Authorized [id number] Closed 11/16/2024 02/16/2026 1 1 Encounter Details Date Type Department Care Team (Latest Contact Info) Description 11/20/2024 11:16 AM PHYSICIAN ASSISTANT SURGERY - 11/20/2024 11:59 PM PHYSICIAN ASSISTANT SURGERY Hospital Encounter Department of Gastroenterology in [place], [place] [address] [place] [phone] Farzaneh Jordan M.D., Ph.D. [address] [place] [address] Leelee Gallegos M.D. [address] [place] [phone] Yohan Mandel, MAGNET VALVE ASSEMBLER, COMPUTER TECH [address] [place] [address] Celiac Disease Discharge Disposition: Home or Self Care Social History Tobacco Use Types Packs/Day Years Used Date Smoking Tobacco: Never Smokeless Tobacco: Never Alcohol Use Standard Drinks/Week Comments Yes 0 (1 standard drink = 0.6 oz pur e alcohol) [facility] Utilities Answer Date Recorded In the past 12 months has [employer], gas, oil, or water [facility] threatened to shut off services in your [...] on file Legal Sex Male 8:19 AM PHYSICIAN ASSISTANT SURGERY Gender Identity Not on file Sexual Orientation Not on file documented as of this encounter Last Filed Vital Signs Vital Sign Reading Time Taken Comments Blood Pressure 126/87 11/20/2024 11:30 AM PHYSICIAN ASSISTANT SURGERY Pulse - - Temperature 36 C (96.8 F) 11/20/2024 11:30 AM PHYSICIAN ASSISTANT SURGERY Respiratory Rate 18 11/20/2024 11:30 AM PHYSICIAN ASSISTANT SURGERY Oxygen Saturation 99% 11/20/2024 11:30 AM PHYSICIAN ASSISTANT SURGERY Inhaled Oxygen Concentration - - Weight - - Height - - Body Mass Index - - documented in this encounter Medications at Time of Discharge albuterol (Ventolin HFA) 90 mcg/actuation inhaler Inhale 2 puffs every 4 (four) hours as needed for wheezing or shortness of breath. 18 g 5 10/06/2024 albuterol 2.5 mg /3 mL nebulizer solution Inhale 3 mL (2.5 mg total) by nebulization every 6 (six) hours as needed for wheezing or shortness of breath. 225 mL 3 09/22/2024 DME CPAPIndications:A pnea Sleep Obstructive DME Order 1 each 09/03/2024 EPINEPHrine (EpiPen 2-Pedrito) 0.3 mg/0.3 mL injection syringe Inject into thigh and hold for 3 seconds. 1 each 2 2024 fluticasone-umecl idin-vilanter (Trelegy Ellipta) 200-62.5-25 mcg inhaler Inhale 1 puff daily. 1 each 5 10/06/2024 loperamide (Imodium A-D) 2 mg capsuleIndication s:Diarrhea Initial: 4 mg, followed by 2 mg after each loose stool; maximum: 16 mg/day. Use for 3 days maximum 60 capsule 10/30/2024 documented as of this encounter Plan of Treatment Upcoming Encounters Date Type Department Care Team (Latest Contact Info) Description 01/08/2025 10:00 AM CDT Ancillary Procedure Department of Allergy in [place], [place] [address] [address] Al Cespedes M.D. [address] [place] [phone] 03/05/2025 10:00 AM CDT Ancillary Procedure Department of Allergy in [place], [place] [address] [address] Al Cespedes M.D. [address] [place] [address] Discharge Disposition: Home or Self Care Scheduled Orders Name Type Priority Associated Diagnoses Orde r Schedule EGD (EsophagealGastr oDuodenoscopy) GI Routine Celiac Disease Once for 1 Occurrences starting 11/20/2024 until 11/20/2024 Glucose, POCT Point of Care Testing-Docked Device Routine Routine lab collecti on (next collection) for 1 Occurrences starting 11/20/2024 until 11/20/2024 documented as of this encounter Visit Diagnoses Diagnosis Celiac Disease documented in this encounter Care Teams Division Road Supervisor Relationship Specialty Start Date End Date Therese Durán P.A.-C., P.A., M.S. [address] [place] [address] PCP - General Family Medicine 04/08/24 documented as of this encounter
--- OUTSIDE RECORDS SUMMARY | 2024-12-18 10:42 | XMS_ITS | Encounter Summary ---
Author Organization [facility] Address [address] [place] [address] Care Team Providers Care Business Analyst Manager Name Role Phone Therese Durán P.A.-C., P.A., M.S. Primary Ca re Provider Encounter Details Date Type Department Care Team (Late st Contact Info) Description 10/30/2024 Results Follow-Up Department of Family Medicine, [facility], in [place], [place] [address] [place] [phone] Jeff Mariano M.D., M.S. [address] [place] [address] GI Pathogen Panel, PCR, Feces Social History Tobacco Use Types Packs/Day Years Used Date Smoking Tobacco: Never Smokeless Tobacco: Never Alcohol Use Standard Drinks/Week Comments Yes 0 (1 standard drink = 0.6 oz pur e alcohol) [facility] Utilities Answer Date Recorded In the past 12 months has [employer], gas, oil, or water [employer] threatened to shut off services in your [...] the money to buy more. 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 - 10/30/2024 8:36 AM TOOLS ADMINISTRATOR Please update the patient on the following: The GI panel was negative for an infectious cause of the diarrhea via PCR testing. It was also negative for C difficile infection as well. It is possible that cause of the the diarrhea is non-infectious, possibly due to malabsorption, inflammatory disease or other gastrointestinal diseases. I would recommend continuing with performing an actual stool culture, ruling out possible parasites, and serology for possible inflammatory bowel cause. Can try loperamide prn after the labs are collected, pending the final results. Script sent. Thx S ADMINISTRATOR documented in this encounter Plan of Treatment Upcoming Encounters Date Type Department Care Team (Latest Contact Info) Description 01/08/2025 10:00 AM CDT Ancillary Procedure Department of Allergy in [place], [place] [address] [address] Al Cespedes M.D. [address] [place] [address] 03/05/2025 10:00 AM CDT Ancillary Procedure Department of Allergy in [place], [place] [address] [place] [address] Al Cespedes M.D. [address] [place] [phone] Discharge Disposition: Home or Self Care documented as of this encounter Results * Inflammatory Bowel Disease Serology Panel (11/02/2024 8:49 AM TOOLS ADMINISTRATOR) Saccharomyces cerevisiae Ab, IgA, S 2.3 <20.0 (Negative) RU/mL 11/03/2024 10:33 AM TOOLS ADMINISTRATOR SDSC Comment: ----ADDITIONAL INFORMATION---- This test was developed and its performance characteristics determined by [facility] in a manner consistent with CLIA requirements. This test has not been cleared or approved by the U.S. Food and Drug Administration. Saccharomyces cerevisiae Ab, IgG, S 8.3 <20.0 (Negative) RU/mL 11/03/2024 12:47 PM TOOLS ADMINISTRATOR [facility] Comment: ----ADDITIONAL INFORMATION---- This test was developed and its performance characteristics determined by [facility] in a manner consistent with CLIA requirements. This test has not been cleared or approved by the U.S. Food and Drug Administration. Cytoplasmic Neutrophilic Ab IBD, S Negative Negative 11/03/2024 9:22 PM TOOLS ADMINISTRATOR [facility] ANCA2 Interpretation Negative for S. cerevisiae antibodies and pANCA. This test should not be relied upon exclusively to establish a diagnosis of inflammatory bowel disease (IBD). Approximately 50% of individuals with IBD are negative for IgA and IgG S. cerevisiae and pANCA. Correlation of clinical symptoms, endoscopy and biopsy findings are required to establish the diagnosis. 11/03/2024 9:22 PM TOOLS ADMINISTRATOR [facility]SC Comment: ----ADDITIONAL INFORMATION---- This test was developed and its performance characteristics determined by [facility] in a manner consistent with CLIA requirements. This test has not been cleared or approved by the U.S. Food and Drug Administration. Blood (Blood, Venous) 11/02/2024 8:49 AM TOOLS ADMINISTRATOR 11/02/2024 6:19 PM TOOLS ADMINISTRATOR us Jeff Mariano M.D., M.S. LAB BLOOD ADD-ON Final Result Performing Organization Address [facility] Co de Phone Number [facility] [address] [place] [address] [facility] [address] [place] [address] [facility] [address] [place] [address] [place] [address] * Celiac Disease Serology [place] (11/02/2024 8:49 AM TOOLS ADMINISTRATOR) Immunoglobulin A (IgA), S 289 61 - 356 mg/dL 11/03/2024 12:28 PM TOOLS ADMINISTRATOR [facility] Celiac Disease Interpretation See Comment: Celiac disease possible. Consider biopsy. 11/06/2024 10:21 PM TOOLS ADMINISTRATOR [facility] Blood (Blood, Venous) 11/02/2024 8:49 AM TOOLS ADMINISTRATOR 11/02/2024 6:19 PM TOOLS ADMINISTRATOR Narrative [facility] - 11/06/2024 10:21 PM TOOLS ADMINISTRATOR Specimen Information: Specimen ID: [id number] Specimen Type: Blood Specimen Collection Start Date: 11/02/2024 8:49 AM Specimen Received Date: 11/02/2024 6:19 PM Specimen ID: [id number] Specimen Type: Blood Specimen Collection Start Date: 11/02/2024 8:49 AM Specimen Received Date: 11/03/2024 6:16 AM Jeff Mariano M.D., M.SDawit LAB BLOOD ADD-ON Final Result Performing Organization Address City/[facility]/ZIP Co de Phone Number [facility] [address] [place] [address] [facility] [address] [place] [address] [facility] [address] [place] [address] [place] [address] * (ABNORMAL) Malabsorption Evaluation Panel, Feces (10/31/2024 6:00 AM TOOLS ADMINISTRATOR) [id number] , Random, F 6 <=54 mg/dL 11/03/2024 7:39 PM TOOLS ADMINISTRATOR [facility] Comment: ----ADDITIONAL INFORMATION---- This test has been modified from the recovery operator helper's instructions. Its performance characteristics were determined by [facility] in a manner consistent with CLIA requirements. This test has not been cleared or approved by the U.S. Food and Drug Administration. Calprotectin, F <50.0 <50.0 (Normal) mcg/g 11/04/2024 5:02 PM TOOLS ADMINISTRATOR [facility] Pancreatic Elastase, F 41(L) >200 (Normal) mcg/g 11/04/2024 4:17 PM TOOLS ADMINISTRATOR [facility] Comment: Interpretation: Abnormal (<100 mcg/g); Consistent with pancreatic insufficiency Reducing Substance, F Grade 1(H) Negative or Trace 11/03/2024 2:49 PM TOOLS ADMINISTRATOR DTL Comment: Grade 1 (0.50 g/dL) ----ADDITIONAL INFORMATION---- This test was developed and its performance characteristics determined by [facility] in a manner consistent with CLIA requirements. This test has not been cleared or approved by the U.S. Food and Drug Administration. Stool (Stool) 10/31/2024 6:0 0 AM TOOLS ADMINISTRATOR 11/04/2024 11:28 AM TOOLS ADMINISTRATOR Narrative [facility] - 11/04/2024 5:02 PM TOOLS ADMINISTRATOR Specimen Information: Specimen ID: [id number] Specimen Type: Stool Specimen Collection Start Date: 10/31/2024 6:00 AM Specimen Received Date: 11/04/2024 11:28 AM Specimen ID: [id number] Specimen Type: Stool Specimen Collection Start Date: 10/31/2024 6:00 AM Specimen Received Date: 11/04/2024 11:29 AM Specimen ID: [id number] Specimen Type: Stool Specimen Collection Start Date: 10/31/2024 6:00 AM Specimen Received Date: 11/03/2024 10:31 AM Specimen ID: [id number] Specimen Type: Stool Specimen Collection Start Date: 10/31/2024 6:00 AM Specimen Received Date: 11/03/2024 12:35 PM Jeff Mariano M.D., M.S. LAB BODY FLUIDS AND STO OLS ORDERABLES Final Result Performing Organization Address [facility] Co de Phone Number [facility] [address] [place] [address], [facility] [address] [place] [address] [facility] [address] [address] * Ova and Parasite, Travel History or Immunocompromised, Feces (10/31/2024 6:00 AM TOOLS ADMINISTRATOR) Pathologist [facility] Ova and Parasite, Microscopy, F No parasites seen. Leukocytes present. Cryptosporidium, Cyclospora, and microsporidia are not readily detected by this method. Single negative specimen does not rule out parasitic infection. 11/06/2024 10:20 PM TOOLS ADMINISTRATOR DTL Stool (Stool) 10/31/2024 6:0 0 AM TOOLS ADMINISTRATOR 11/02/2024 8:31 PM TOOLS ADMINISTRATOR Comment:Specimen Source Site : Stool Jeff Mariano M.D., M.S. LAB MICROBIOLOGY - GENE RAL ORDERABLES Final Result Performing Organization Address [facility] Co de Phone Number [facility] [address] [place] [address], [facility] [address] [place] [address] * Enteric Pathogens Culture, Stool (10/31/2024 6:00 AM TOOLS ADMINISTRATOR) Pathologist [facility] Enteric Pathogens Culture, Stool No growth of Salmonella, Shigella, Yersinia, Campylobact er, or Aeromonas. 11/06/2024 10:08 AM TOOLS ADMINISTRATOR DT Stool (Stool) 10/31/2024 6:0 0 AM TOOLS ADMINISTRATOR 11/02/2024 7:03 PM TOOLS ADMINISTRATOR Comment:Specimen Source Site : Stool Jeff Mariano M.D., M.S. LAB MICROBIOLOGY - GENE RAL ORDERABLES Final Result Performing Organization Address [facility] Co de Phone Number [facility] [address] [place] [address], [facility] [address] [place] [address] documented in this encounter Visit Diagnoses Diagnosis Diarrhea- Primary Diarrhea Diarrhea documented in this encounter Care Teams Business Analyst Manager Relationship Specialty Start Date End Date Therese Durán P.A.-C., P.A., M.S. [address] [place] [address] PCP - General Family Medicine 04/08/24 documented as of this encounter
--- OUTSIDE RECORDS SUMMARY | 2024-12-18 10:42 | XMS_ITS | Encounter Summary ---
Author Organization [facility] Address [address] [place] [address] Care Team Providers Care Floor Installation Mechanic Name Role Phone Therese Durán P.A.-C., P.A., M.S. Primary Ca re Provider Reason for Visit * Reason Comments Immunotherapy * Outpatient (Routine) - Authorized Specialty Diagnoses / Procedures Referred By Contac t Referred To Contact Diagnoses Rhinitis Procedures Immunotherapy: Sub-cutaneous (SQ) injection Al Cespedes M.D. [address] [place] [address] Phone: tel: fax: [facility] Referral ID Status Reason Start Date Expiration Date V isits Requested Visits Authorized [id number] Authorized 2024 2025 100 100 Encounter Details Date Type Department Care Team (Latest Contact Info) Description 10/16/2024 10:00 AM COMBATANT DIVER QUALIFIED Ancillary Procedure Department of Allergy in [place], [place] [address] [place] [phone] Al Cespedes M.D. [address] [place] [phone] Heather Barfield, RDawitNDawit [address] [place] [phone] Rhinitis Discharge Disposition: Home or Self Care Social History Tobacco Use Types Packs/Day Years Used Date Smoking Tobacco: Never Smokeless Tobacco: Never Alcohol Use Standard Drinks/Week Comments Yes 0 (1 standard drink = 0.6 oz pur e alcohol) [facility] Utilities Answer Date Recorded In the [...] on file Legal Sex Male 8:19 AM COMBATANT DIVER QUALIFIED Gender Identity Not on file Sexual Orientation Not on file documented as of this encounter Patient Instructions * Patient Instructions* Heather Barfield, R.N. - 10/16/2024 10:00 AM COMBATANT DIVER QUALIFIED Allergy shots Patient Instructions for Follow up 10/16/24 Your next dose is due in 2 [...] room. For non-emergent symptoms contact your provider. ATANT DIVER QUALIFIED documented in this encounter Nursing Notes * Heather Barfield R.N. - 10/16/2024 10:05 AM CST Sae presented to the Allergy Department for immunotherapy injection(s) today. You are in the Building Phase. You are due back for your allergy shot between 10/18/24 and 10/24/24. If you are beyond this window, you will fall into the late protocol and will need adjustments to your dosing and appointments.. ATANT DIVER QUALIFIED documented in this encounter Plan of Treatment Upcoming Encounters Date Type Department Care Team (Latest Contact Info) Description 01/08/2025 10:00 AM CDT Ancillary Procedure Department of Allergy in [place], [place] [address] [place] [address] Al Cespedes M.D. [address] [place] [address] 03/05/2025 10:00 AM CDT Ancillary Procedure Department of Allergy in [place], [place] [address] [address] Al Cespedes M.D. [address] [place] [address] Discharge Disposition: Home or Self Care documented as of this encounter Visit Diagnoses Diagnosis Rhinitis documented in this encounter Care Teams Floor Installation Mechanic Relationship Specialty Start Date End Date Therese Durán P.A.-C., P.A., M.S. [address] [place], [place] [phone] PCP - General Family Medicine 04/08/24 documented as of this encounter
--- OUTSIDE RECORDS SUMMARY | 2024-12-18 10:42 | XMS_ITS | Encounter Summary ---
Author Organization [facility] Address [address] [place] [address] Care Team Providers Care Homebound Teacher Name Role Phone Therese Durán P.A.-C., P.A., M.S. Primary Ca re Provider Reason for Referral * Outpatient (Routine) - Closed Specialty Diagnoses / Procedures Referred By Contact Referred To Contact Gastroenterology and Hepatology Diagnoses Diarrhea Celiac Disease Jeff Mariano M.D., M.S. [address] [place] [address] Phone: tel: fax: [facility] Referral ID Status Reason Start Date Expiration Date Visits Re quested Visits Authorized [id number] Closed 11/07/2024 05/09/2026 1 1 Scheduling Instructions GIH consult should be scheduled after all testing CAL DEVICE SALES REPRESENTATIVE Encounter Details Date Type Department Care Team (Latest Contact Info) Description 11/05/2024 Results Follow-Up Department of Family Medicine, [facility], in [place], [place] [address] [place] [address] Jeff Mariano M.D., M.S. [address] [place] [address] Celiac Disease Serology Dickson, Inflammatory Bowel Disease Serology Panel, tTG (Tissue Transglutaminase), Antibody, IgA, Additional followed-up results: 2 Social History Tobacco Use Types Packs/Day Years Used Date Smoking Tobacco: Never Smokeless Tobacco: Never Alcohol Use Standard Drinks/Week Comments Yes 0 (1 standard drink = 0.6 oz pur e alcohol) [facility] Utilities Answer Date Recorded In the past 12 months has e electric, gas, oil, or water company [...] file Legal Sex Male 8:19 AM MEDICAL DEVICE SALES REPRESENTATIVE Gender Identity Not on file Sexual Orientation Not on file documented as of this encounter Miscellaneous Notes * Result Encounter Note - Jfef Mariano M.D., M.S. - 11/05/2024 8:07 PM MEDICAL DEVICE SALES REPRESENTATIVE --IBD panel: Negative; --Gliadin(Deamidated) Ab, IgA, S: 48.3 High, -Positive; Tissue Transglutaminase Ab, IgA, S: 10.0, -Weak positive; --Pancreatic Elastase: 41, -Abnormal (<100 mcg/g), consistent with pancreatic insufficiency. --Pending Endomysial IgA, Enteric pathogen culture/Ova/Parasite. --Discussed over the phone. Still experiencing diarrheal symptoms, although improving. No abdominalpain, no symptoms suggestive of pancreatitis, occasional alcohol use. Further evaluation with GI, small bowel biopsies to be considered as indicated. Outside Colonoscopy (12/23/2023 - [facility]): Colorectal polyps, Diverticulosis of colon, acquired; ---Pathology Results: 1. Inflammatory polyp (1) and normal colonic mucosa with a lymphoid aggregate(clinically, 2 polyps) 2. Negative for dysplasia -No known family history of celiac disease; Gluten sensitivity: sister CAL DEVICE SALES REPRESENTATIVE documented in this encounter Plan of Treatment Upcoming Encounters Date Type Department Care Team (Latest Contact Info) Description 01/08/2025 10:00 AM CDT Ancillary Procedure Department of Allergy in [place], [place] [address] [address] Al Cespedes M.D. [address] [place] [address] 03/05/2025 10:00 AM CDT Ancillary Procedure Department of Allergy in [place], [place] [address] [address] Al Cespedes M.D. [address] [place] [address] Discharge Disposition: Home or Self Care Scheduled Referrals Name Type Priority Associated Diagnoses Order Schedule Gastroenterology and Hepatology - Celiac consult (clinic) Outpatient Referral Routine Diarrhea Celiac Disease Expected: 11/07/2024, Expires: 02/04/2026 documented as of this encounter Visit Diagnoses Diagnosis Diarrhea- Primary Celiac Disease documented in this encounter Care Teams Homebound Teacher Relationship Specialty Start Date End Date Therese Durán P.A.-C., P.A., M.S. [address] [place] [address] PCP - General Family Medicine 04/08/24 documented as of this encounter
--- OUTSIDE RECORDS SUMMARY | 2024-12-18 10:42 | XMS_ITS | Encounter Summary ---
Author Organization [facility] Address [address] [place] [address] Care Team Providers Care Fur Repairer Name Role Phone Therese Durán P.A.-C., P.A., M.S. Primary Ca re Provider Reason for Visit * Reason Onset Date Comments EGD 11/17/2024 Encounter Details Date Type Department Care Team (Late st Contact Info) Description 11/17/2024 Clinical Communication Department of Gastroenterology in [place], [place] [address] [place] [phone] Leelee Gallegos M.D. 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 [address] [place] [address] 03/05/2025 10:00 AM CDT Ancillary Procedure Department of Allergy in [place], [place] [address] [address] Al Cespedes M.D. [address] [place] [address] Discharge Disposition: Home or Self Care documented as of this encounter Visit Diagnoses Not on filedocumented in this encounter Care Teams Fur Repairer Relationship Specialty Start Date End Date Therese Durán P.A.-C., P.A., M.S. [address] [place] [address] PCP - General Family Medicine 04/08/24 documented as of this encounter
--- OUTSIDE RECORDS SUMMARY | 2024-12-18 10:42 | XMS_ITS | Encounter Summary ---
Author Organization [facility] Address [address] [place] [address] Care Team Providers Care Drywall Foreman Name Role Phone Therese Durán P.A.-C., P.A., M.S. Primary Ca re Provider Encounter Details Date Type Department Care Team (Late st Contact Info) Description 11/03/2024 CPAP Download Remote Patient Monitoring [facility] [address] [place] [address] [facility], Provider, Social History Tobacco Use Types Packs/Day Years Used Date Smoking Tobacco: Never Smokeless Tobacco: Never Alcohol Use Standard Drinks/Week Comments Yes 0 (1 standard drink = 0.6 oz pur e alcohol) [facility] Utilities Answer Date Recorded In the past 12 months has th e electric, gas, oil, or water [email or web address] threatened to shut off services in your [...] on file 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 [address] [place] [address] 03/05/2025 10:00 AM CDT Ancillary Procedure Department of Allergy in [place], [place] [address] [address] Al Cespedes M.D. [address] [place] [address] Discharge Disposition: Home or Self Care documented as of this encounter Visit Diagnoses Not on filedocumented in this encounter Care Teams Drywall Foreman Relationship Specialty Start Date End Date Therese Durán P.A.-C., P.A., M.S. [address] [place] [address] PCP - General Family Medicine 04/08/24 documented as of this encounter
--- OUTSIDE RECORDS SUMMARY | 2024-12-18 10:42 | XMS_ITS | Encounter Summary ---
Author Organization [facility] Address [address] [place] [address] Care Team Providers Care Press Washer Name Role Phone Therese Durán P.A.-C., P.A., M.S. Primary Ca re Provider Reason for Visit * Appointment Request (Routine) - Closed Specialty Diagnoses / Procedures Referred By Contac t Referred To Contact Laboratory Medicine Jeff Mariano M.D., M.S. [address] [place] [address] Phone: tel: fax: Referral ID Status Reason Start Date Expiration Date Visits Re quested Visits Authorized [id number] Closed 11/02/2024 02/02/2026 1 1 Encounter Details Date Type Department Care Team (Latest Contact Info) Description 11/02/2024 8:45 AM RIB CUTTER - 11/02/2024 11:59 PM RIB CUTTER Hospital Encounter Department of Laboratory Medicine in [place], [place] [address] [phone] Jeff Mariano M.D., M.S. [address] [address] Discharge Disposition: Home or Self Care Social History Tobacco Use Types Packs/Day Years Used Date Smoking Tobacco: Never Smokeless Tobacco: Never Alcohol Use Standard Drinks/Week Comments Yes 0 (1 standard drink = 0.6 oz pur e alcohol) [facility] Utilities Answer Date Recorded In the past 12 months has [employer], [email or web address], or [employer] threatened to shut off services in your [...] on file Legal Sex Male 8:19 AM RIB CUTTER Gender Identity Not on file Sexual Orientation Not on file documented as of this encounter Medications at Time of Discharge [...] CDT Ancillary Procedure Department of Allergy in [place], [place] [address] [address] Al Cespedes M.D. [address] [place] [phone] 03/05/2025 10:00 AM CDT Ancillary Procedure Department of Allergy in [place], [place] [address] [address] Al Cespedes M.D. [address] [place] [address] Discharge Disposition: Home or Self Care documented as of this encounter Visit Diagnoses Not on filedocumented in this encounter Care Teams Press Washer Relationship Specialty Start Date End Date Therese Durán P.A.-C., P.A., M.S. [address] [place] [address] PCP - General Family Medicine 04/08/24 documented as of this encounter
--- OUTSIDE RECORDS SUMMARY | 2024-12-18 10:42 | XMS_ITS | Encounter Summary ---
Author Organization [facility] Address [address] [place] [address] Care Team Providers Care Telephone Station Installer Name Role Phone Therese Durán P.A.-C., P.A., M.S. Primary Ca re Provider Reason for Visit * Reason Comments Immunotherapy * Outpatient (Routine) - Authorized Specialty Diagnoses / Procedures Referred By Contkayla t Referred To Contact Diagnoses Rhinitis Procedures Immunotherapy: Sub-cutaneous (SQ) injection Al Cespedes M.D. [address] [place] [address] Phone: tel: fax: [facility] Referral ID Status Reason Start Date Expiration Date V isits Requested Visits Authorized [id number] Authorized 2024 2025 100 100 Encounter Details Date Type Department Care Team (Latest Contact Info) Description 10/30/2024 11:00 AM COMIC WRITER Ancillary Procedure Department of Allergy in [place], [place] [address] [place] [address] Al Cespedes M.D. [address] [place] [phone] Rhinitis Discharge Disposition: Home or Self Care Social History Tobacco Use Types Packs/Day Years Used Date Smoking Tobacco: Never Smokeless Tobacco: Never Alcohol Use Standard Drinks/Week Comments Yes 0 (1 standard drink = 0.6 oz pur e alcohol) [facility] Utilities Answer Date Recorded In the past 12 months has [employer], gas, oil, or water [employer] threatened to shut off services in your [...] on file Legal Sex Male 8:19 AM COMIC WRITER Gender Identity Not on file Sexual Orientation Not on file documented as of this encounter Patient Instructions * Patient Instructions* Heather Barfield, R.N. - 10/30/2024 11:00 AM COMIC WRITER Allergy shots Patient Instructions for Follow up 10/30/24 Your next dose is due 1 - 8 days If you fail to [...] room. For non-emergent symptoms contact your provider. C WRITER documented in this encounter Nursing Notes * Heather Barfield R.N. - 10/30/2024 10:51 AM CST Sae presented to the Allergy Department for immunotherapy injection(s) today. You are in the Building Phase. You are due back for your allergy shot between 11/01/24 and 11/07/24. If you are beyond this window, you will fall into the late protocol and will need adjustments to your dosing and appointments.. C WRITER documented in this encounter Plan of Treatment Upcoming Encounters Date Type Department Care Team (Latest Contact Info) Description 01/08/2025 10:00 AM CDT Ancillary Procedure Department of Allergy in [place], [place] [address] [phone] Al Cespedes M.D. [address] [place] [address] 03/05/2025 10:00 AM CDT Ancillary Procedure Department of Allergy in [place], [place] [address] [address] Al Cespedes M.D. [address] [place] [address] Discharge Disposition: Home or Self Care documented as of this encounter Visit Diagnoses Diagnosis Rhinitis documented in this encounter Care Teams Telephone Station Installer Relationship Specialty Start Date End Date Therese Durán P.A.-C., P.A., M.S. [address] [phone] PCP - General Family Medicine 04/08/24 documented as of this encounter
--- OUTSIDE RECORDS SUMMARY | 2024-12-18 10:42 | XMS_ITS | Encounter Summary ---
Author Organization [facility] Address [address] [place] [address] Care Team Providers Care Delivery Of Shopping News Name Role Phone Therese Durán P.A.-C., P.A., M.S. Primary Ca re Provider Encounter Details Date Type Department Care Team (Late st Contact Info) Description 11/05/2024 Clinical Communication Department of Allergy in [place], [place] [address] [place] [phone] Jayy Pereyra M.D. 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 - 11/05/2024 11:06 AM FRAME ASSEMBLER Spoke with patient today, he is able to come in today for allergy injection. E ASSEMBLER documented in this encounter Plan of Treatment Upcoming Encounters Date Type Department Care Team (Latest Contact Info) Description 01/08/2025 10:00 AM CDT Ancillary Procedure Department of Allergy in [place], [place] [address] [place] [address] Al Cespedes M.D. [address] [place] [phone] 03/05/2025 10:00 AM CDT Ancillary Procedure Department of Allergy in [place], [place] [address] [address] Al Cespedes M.D. [address] [place] [phone] Discharge Disposition: Home or Self Care documented as of this encounter Visit Diagnoses Not on filedocumented in this encounter Care Teams Delivery Of Shopping News Relationship Specialty Start Date End Date Therese Durán P.A.-C., P.A., M.S. [address] [place] [phone] PCP - General Family Medicine 04/08/24 documented as of this encounter
== END 2024-12-18 11:01 | disposition home or self-care (01) ==
PROVIDERS: Emergency Provider Internal Medicine
DX: R05.8 Other specified cough (principal)
CPT/HCPCS: 36415; 71045; 80048; 84484; 85025; 85379; 93005; 99283; 99284